=== PATIENT | female | born 1965 | race Caucasian/White ===

== ENCOUNTER 2017-01-18 16:17 | Emergency (ER) | payer MEDICAID ==
[~2017-01-18] VITALS: Ht 167.6 cm; Wt 71.7 kg
[~2017-01-18 16:17] MED LIST: CITA40TA22 PO; IBUP-1096 PO; XANAX PO
[2017-01-18] MEDS ORDERED: PROG100C6 PO (16:26)
[2017-01-18] MEDS ORDERED: [UNRECOGNIZED DRUG - REMARK] (16:26)
[2017-01-18] MEDS ORDERED: HYDROCODONE/APAP 5-325MG TABLET PO ONE (16:45)
[2017-01-18] MEDS ORDERED: KETOROLAC TROMETHAMINE 30 MG INJ IM ONE (16:45)
--- NOTE | 2017-01-18 16:55 | NUR ---
Patient discharged to home in stable conditon. Written and verbal after care instructions given. Patient verbalizes understanding of instructions.
[2017-01-18] MEDS ORDERED: KETOROLAC TROMETHAMINE 30 MG INJ ONE (16:56)
[2017-01-18] MEDS ORDERED: HYDROCODONE/APAP 5-325MG TABLET ONE (16:57)
== END 2017-01-18 17:01 | disposition home or self-care (01) ==
LOC: ER 16:22
DX: J45.909 Unspecified asthma, uncomplicated (principal); M26.603 Bilateral temporomandibular joint disorder, unspecified; F10.20 Alcohol dependence, uncomplicated; F41.9 Anxiety disorder, unspecified; F32.9 Major depressive disorder, single episode, unspecified
CPT/HCPCS: A4663; J1885

== ENCOUNTER 2017-01-25 12:21 | Emergency (ER) | payer MEDICAID ==
[~2017-01-25] VITALS: Ht 167.6 cm; Wt 71.7 kg
[~2017-01-25 12:21] MED LIST changes: -CITA40TA22 PO; +PROG100C6 PO; +[UNRECOGNIZED DRUG - REMARK]
--- NOTE | 2017-01-25 14:13 | NUR ---
PATIENT BEING SEEN BY ER PHYSICIAN FOR EVALUATION. PATIENT HAS BEEN WAITING INPATIENTLY IN ROOM. CONTINOUSLY COMES OUT OF ROOM TO ASK FOR THE DOCTOR.
[2017-01-25] MEDS ORDERED: ALBUTEROL SULFATE 1.25 MG/3 ML NEBU NEB ONE (14:15)
[2017-01-25] MEDS ORDERED: ALBUTEROL SULFATE 1.25 MG/3 ML NEBU ONE (14:30)
[2017-01-25] MEDS ORDERED: IBUPROFEN 600 MG TABLET PO ONE (14:30)
--- NOTE | 2017-01-25 14:33 | NUR ---
PATIENT HAS NOT COMPLETED BREATHING TREATMENT AND ALREADY WANTS TO BE DISCHARGED.
--- NOTE | 2017-01-25 14:34 | NUR ---
DISCHARGE PAPERWORK GIVEN WITH PRESCRIPTION. DISCHARGE INSTRUCTIONS UNDERSTOOD
== END 2017-01-25 14:36 | disposition home or self-care (01) ==
LOC: ER 12:23
DX: S90.32XA Contusion of left foot, initial encounter (principal); J45.909 Unspecified asthma, uncomplicated; F10.20 Alcohol dependence, uncomplicated; F41.9 Anxiety disorder, unspecified; F32.9 Major depressive disorder, single episode, unspecified; X58.XXXA Exposure to other specified factors, initial encounter; Y93.89 Activity, other specified; Y99.8 Other external cause status; Y92.89 Other specified places as the place of occurrence of the external cause
CPT/HCPCS: 94640; 99283; A4663

== ENCOUNTER 2017-01-26 11:02 | Emergency (ER) | payer MEDICAID ==
[~2017-01-26] VITALS: Ht 167.6 cm; Wt 61.2 kg
[2017-01-26] MEDS ORDERED: ALBUTEROL SULFATE 2.5 MG/3 ML NEBU NEB ONE (11:30)
--- NOTE | 2017-01-26 11:36 | NUR ---
PT IS IN ROOM #1B. DR ROWAN EVALUATED THE PT.
[2017-01-26] MEDS ORDERED: ALBUTEROL SULFATE 2.5 MG/3 ML NEBU ONE (11:46)
--- NOTE | 2017-01-26 12:48 | NUR ---
PT WAS D/C TO HOME. D/C INSTRUCTIONS GIVEN TO THE PT.
[2017-01-26 12:49] VITALS: BP 128/72
== END 2017-01-26 12:50 | disposition home or self-care (01) ==
LOC: ER 11:02
DX: J20.9 Acute bronchitis, unspecified (principal); S90.32XA Contusion of left foot, initial encounter; F32.9 Major depressive disorder, single episode, unspecified; F41.9 Anxiety disorder, unspecified; F10.20 Alcohol dependence, uncomplicated; X58.XXXA Exposure to other specified factors, initial encounter; Y93.9 Activity, unspecified; Y99.9 Unspecified external cause status; Y92.9 Unspecified place or not applicable
CPT/HCPCS: 71020; 73620; 94640; 99284; A4663

== ENCOUNTER 2017-02-18 20:36 | Emergency (ER) | payer MEDICAID ==
[~2017-02-18] VITALS: Ht 167.6 cm; Wt 71.7 kg
--- NOTE | 2017-02-18 22:00 | NUR ---
LEFT FOOT PAIN AND SWOLEN AFTER STANDING ON HER FEET FOR A LONG TIME AT WORK.PULSES PRESENT , DR IN AND SEEN PT.
[2017-02-18] MEDS ORDERED: TRAMADOL HCL 50 MG TABLET PO ONE (22:15)
[2017-02-18] MEDS ORDERED: TRAMADOL HCL 50 MG TABLET ONE (22:23)
--- NOTE | 2017-02-18 23:10 | NUR ---
FLOR WRAP TO LEFT FOOT APPLIED WELL POST OP SHOE FITTED IN, PT FEELS BETTER WITH SUPPORT TO HER LEFT FOOT, ACI GIVEN WELL PRESC EXPLAINED , DISCH AMBULATORY IN STABLE CONDITION.
[2017-02-18 23:14] VITALS: BP 108/69
== END 2017-02-18 23:16 | disposition home or self-care (01) ==
LOC: ER 20:37
DX: S93.602A Unspecified sprain of left foot, initial encounter (principal); F10.20 Alcohol dependence, uncomplicated; F41.9 Anxiety disorder, unspecified; F32.9 Major depressive disorder, single episode, unspecified; X58.XXXA Exposure to other specified factors, initial encounter; Y93.89 Activity, other specified; Y99.8 Other external cause status; Y92.89 Other specified places as the place of occurrence of the external cause
CPT/HCPCS: A4663

== ENCOUNTER 2017-03-04 21:18 | Emergency (ER) | payer MEDICAID ==
[~2017-03-04] VITALS: Ht 167.6 cm; Wt 72.6 kg
[2017-03-04] MEDS ORDERED: ONDANSETRON ODT 4 MG TAB.RAPDIS SL ONE (22:15)
[2017-03-04] MEDS ORDERED: SULFAMETH/TRIMETH 800/160 MG TABLET PO ONE (22:15)
[2017-03-04] MEDS ORDERED: PSEUDOEPHEDRINE HCL 30 MG TABLET PO ONE (22:15)
[2017-03-04] MEDS ORDERED: OXYCODONE/APAP 5-325 MG TABLET PO ONE (22:15)
[2017-03-04] MEDS ORDERED: ONDANSETRON ODT 4 MG TAB.RAPDIS ONE (22:27)
[2017-03-04] MEDS ORDERED: PSEUDOEPHEDRINE HCL 30 MG TABLET ONE (22:27)
[2017-03-04] MEDS ORDERED: SULFAMETH/TRIMETH 800/160 MG TABLET ONE (22:28)
[2017-03-04] MEDS ORDERED: OXYCODONE/APAP 5-325 MG TABLET ONE (22:28)
--- NOTE | 2017-03-04 22:28 | NUR ---
mse completed, pt rec'd meds, pt then d/c'd home, aci/rx x3 given. pt ambulated w/o diff/took all belongings.
[2017-03-04 22:30] VITALS: BP 133/99
== END 2017-03-04 22:31 | disposition home or self-care (01) ==
LOC: ER 21:21
DX: J32.9 Chronic sinusitis, unspecified (principal); F41.9 Anxiety disorder, unspecified; F32.9 Major depressive disorder, single episode, unspecified; F10.20 Alcohol dependence, uncomplicated; R51 Headache
CPT/HCPCS: A4663; Q0162

== ENCOUNTER 2017-04-06 09:10 | Emergency (ER) | payer MEDICAID ==
[~2017-04-06] VITALS: Ht 167.6 cm; Wt 71.7 kg
[2017-04-06] MEDS: ALBUTEROL SULFATE 2.5 MG/3 ML NEBU NEB ONE (09:25)
[2017-04-06] MEDS: IPRATROPIUM BROMIDE 0.5 MG/2.5 ML NEBU NEB ONE (09:25)
[2017-04-06] MEDS: predniSONE 10 MG TABLET PO ONE (09:36)
[2017-04-06] MEDS ORDERED: IPRATROPIUM BROMIDE 0.5 MG/2.5 ML NEBU ONE (09:41)
[2017-04-06] MEDS ORDERED: ALBUTEROL SULFATE 2.5 MG/3 ML NEBU ONE (09:41)
[2017-04-06] MEDS ORDERED: predniSONE 50 MG TABLET ONE (09:49)
[2017-04-06] MEDS ORDERED: predniSONE 10 MG TABLET ONE (09:50)
--- NOTE | 2017-04-06 10:02 | NUR ---
pt was evaluted by dr mueller. pt was medicated according er md orders. pt tolerated to medication and procedures without complications. pt was d/c to home. d/c instructions given to the pt.
[2017-04-06 10:04] VITALS: BP 132/87
== END 2017-04-06 10:05 | disposition home or self-care (01) ==
LOC: ER 09:10
DX: J45.909 Unspecified asthma, uncomplicated (principal); F32.9 Major depressive disorder, single episode, unspecified; F41.9 Anxiety disorder, unspecified
CPT/HCPCS: A4663; J3590; J7512

== ENCOUNTER 2017-04-08 16:48 | Emergency (ER) | payer MEDICAID ==
[~2017-04-08] VITALS: Ht 167.6 cm; Wt 71.7 kg
[2017-04-08] MEDS ORDERED: IPRATROPIUM BROMIDE 0.5 MG/2.5 ML NEBU NEB ONE (17:45)
[2017-04-08] MEDS ORDERED: ALBUTEROL SULFATE 2.5 MG/3 ML NEBU NEB ONE (17:45)
--- NOTE | 2017-04-08 17:48 | NUR ---
PT IS IN ROOM #2B. DR ALFREDO EVALUATED THE PT.
[2017-04-08] MEDS ORDERED: IPRATROPIUM BROMIDE 0.5 MG/2.5 ML NEBU ONE (18:06)
[2017-04-08] MEDS ORDERED: ALBUTEROL SULFATE 2.5 MG/ 0.5 ML NEBU ONE (18:06)
[2017-04-08] MEDS ORDERED: predniSONE 20 MG TABLET PO ONE (18:15)
[2017-04-08] MEDS ORDERED: predniSONE 20 MG TABLET ONE (18:34)
--- NOTE | 2017-04-08 19:12 | NUR ---
PT WAS D/C TO HOME. D/C INSTRUCTIONS GIVEN TO THE PT. NO SOB. NO S/S OF ACUTE DISTRESS.
[2017-04-08 19:13] VITALS: BP 132/78
== END 2017-04-08 19:15 | disposition home or self-care (01) ==
LOC: ER 16:50
DX: J45.909 Unspecified asthma, uncomplicated (principal); F32.9 Major depressive disorder, single episode, unspecified; F41.9 Anxiety disorder, unspecified
CPT/HCPCS: 94644; 99285; A4663; J3590; J7512

== ENCOUNTER 2017-05-18 20:04 | Emergency (ER) | payer MEDICAID ==
[~2017-05-18] VITALS: Ht 170.2 cm; Wt 72.6 kg
[2017-05-18] MEDS ORDERED: IBUPROFEN 800 MG TABLET PO ONE (21:00)
--- NOTE | 2017-05-18 21:07 | NUR ---
Patient discharged to home in stable conditon. Written and verbal after care instructions given. Patient verbalizes understanding of instructions.
[2017-05-18] MEDS ORDERED: IBUPROFEN 800 MG TABLET ONE (21:14)
== END 2017-05-18 21:08 | disposition home or self-care (01) ==
LOC: ER 20:08
DX: S89.91XA Unspecified injury of right lower leg, initial encounter (principal); F32.9 Major depressive disorder, single episode, unspecified; F41.9 Anxiety disorder, unspecified; X58.XXXA Exposure to other specified factors, initial encounter; Y93.89 Activity, other specified; Y99.8 Other external cause status; Y92.89 Other specified places as the place of occurrence of the external cause
CPT/HCPCS: A4663

== ENCOUNTER 2017-06-10 12:20 | Emergency (ER) | payer MEDICAID ==
[~2017-06-10] VITALS: Ht 167.6 cm; Wt 72.6 kg
[2017-06-10] MEDS ORDERED: PROGESTERON (12:46)
--- NOTE | 2017-06-10 14:03 | NUR ---
PATIENT WAS SEEN BY DR ALFREDO FOR C/O IRRITATION IN PERINEUM.
[2017-06-10 14:18] LABS: *BILIRUBIN,URIN NEGATIVE (NEGATIVE); *BLOOD, URINE NEGATIVE (NEGATIVE); *CLARITY,URINE CLEAR (CLEAR); *COLOR,URINE YELLOW (YELLOW); *KETONES,URINE NEGATIVE (NEGATIVE); *PROTEIN,URINE NEGATIVE (NEGATIVE); *UROBILINOGEN,URINE 0.2 E.U./dl (NORMAL); LEUKOCYTE ESTERASE ,URINE NEGATIVE (NEGATIVE); NITRITE, URINE NEGATIVE (NEGATIVE); UGLUCOSE NEGATIVE (NEGATIVE)
--- NOTE | 2017-06-10 14:18 | NUR ---
DC, RX AND FOLLOW UP INSTRUCTIONS GIVEN AND EXPLAINED TO PATIENT WHO STATES SHE UNDERSTANDS ALL INSTRUCTIONS.
[2017-06-10 14:21] LABS: *URINE HCG, QUAL NEGATIVE (NEGATIVE)
[2017-06-10 14:30] LABS: BACTERIA,URINE MODERATE /HPF (NONE SEEN); RBC,URINE 0-3 /HPF (0-3); SQUAMOUS EPITHELIAL CELL,UR FEW /HPF (NONE SEEN); WBC,URINE 0-3 /HPF (0-3)
== END 2017-06-10 14:20 | disposition home or self-care (01) ==
LOC: ER 12:20
DX: L30.9 Dermatitis, unspecified (principal); I10 Essential (primary) hypertension; J45.909 Unspecified asthma, uncomplicated
CPT/HCPCS: 81001; 84703; 87491; 99284; A4663

== ENCOUNTER 2017-06-21 16:33 | Emergency (ER) | payer MEDICAID ==
[~2017-06-21] VITALS: Ht 167.6 cm; Wt 72.6 kg
[~2017-06-21 16:33] MED LIST changes: -IBUP-1096 PO; -PROG100C6 PO; +PROGESTERON; -XANAX PO
[2017-06-21] MEDS ORDERED: ASPIRIN 325 MG TABLET PO ONE (17:00)
[2017-06-21] MEDS ORDERED: KETOROLAC TROMETHAMINE 15 MG INJ IV ONE (17:00)
[2017-06-21] MEDS ORDERED: ASPIRIN 325 MG TABLET ONE (17:20)
[2017-06-21] MEDS ORDERED: KETOROLAC TROMETHAMINE 15 MG INJ ONE ×2 (17:20)
[2017-06-21] MEDS ORDERED: ASPIRIN 81 MG TAB.CHEW ONE (17:20)
[2017-06-21] MEDS ORDERED: ONDANSETRON IV *ER 4 MG/2 ML VIAL ONE (17:20)
--- NOTE | 2017-06-21 17:20 | NUR ---
PATIENT WAS SEEN BY MD FOR C/O NAUSEA AND PAIN. IV PLACED, MEDS GIVEN. STATES PAIN DIMINISHED SOME. AWAITING TEST RESULTS.
[2017-06-21 17:42] LABS: BASOPHILS # (AUTO) 0.1 K/uL (0.0-8.0); BASOPHILS % (AUTO) 0.9 % (0.0-2.0); EOSINOPHILS # (AUTO) 0.6 K/uL (0.0-0.7); EOSINOPHILS % (AUTO) 6.1 % (0.0-7.0); HEMATOCRIT 44.8 % (37-47); HEMOGLOBIN 14.8 G/DL (12.0-16.0); LYMPHOCYTES # (AUTO) 2.6 K/UL (0.8-4.8); LYMPHOCYTES % (AUTO) 27.8 % (20.5-51.5); MEAN CORPUSCULAR HEMOGLOBIN 31.9 UUG (27.0-31.0); MEAN CORPUSCULAR HGB CONC 33 g/dL (32.0-37.0); MEAN CORPUSCULAR VOLUME 96.6 FL (81.0-99.0); MONOCYTES # (AUTO) 0.5 K/UL (0.1-1.30); MONOCYTES % (AUTO) 4.8 % (0.0-11.0); NEUTROPHILS # (AUTO) 5.6 K/UL (1.8-8.9); NEUTROPHILS % (AUTO) 60.4 % (38.5-71.5); PLATELET COUNT (AUTO) 225 K/UL (150-450); POTASSIUM 3.9 mmol/L (3.5-5.1); RED BLOOD CELL COUNT(AUTO) 4.63 MIL/UL (4.2-5.4); WHITE BLOOD COUNT (AUTO) 9.4 K/UL (4.0-11.2)
[2017-06-21] MEDS ORDERED: ONDANSETRON IV *ER 4 MG/2 ML VIAL IV ONE (17:45)
[2017-06-21 17:48] LABS: BILIRUBIN,DIRECT 0.1 mg/dL (0.0-0.2); BILIRUBIN,TOTAL 0.2 mg/dL (0.2-1.0); TOTAL PROTEIN, SERUM 6.9 g/dL (6.4-8.2)
[2017-06-21] MEDS ORDERED: ONDANSETRON 4 MG/2 ML VIAL ONE (17:59)
--- NOTE | 2017-06-21 18:13 | NUR ---
DC, RX AND FOLLOW UP INSTRUCTIONS GIVEN AND EXPLAINED TO PATIENT AND FAMILY WHO STATE THEY UNDERSTAND ALL INSTRUCTIONS.
[2017-06-21 18:15] VITALS: BP 120/65
[2017-06-22] MEDS ORDERED: NATURE THYROID (08:52)
[2017-06-22] MEDS ORDERED: ALBU8HFA4 INH (08:52)
== END 2017-06-21 18:17 | disposition home or self-care (01) ==
LOC: ER 16:34
DX: F41.9 Anxiety disorder, unspecified (principal); I10 Essential (primary) hypertension; J45.909 Unspecified asthma, uncomplicated; F32.9 Major depressive disorder, single episode, unspecified
CPT/HCPCS: 36415; 70030-TC; 83690; 84703; 85025; 85730; 93005; A4663; J1885; J2405

== ENCOUNTER 2017-06-22 08:33 | Emergency (ER) | payer MEDICAID ==
[~2017-06-22] VITALS: Ht 167.6 cm; Wt 72.6 kg
[2017-06-22] MEDS ORDERED: NATURE THYROID (08:52)
[2017-06-22] MEDS ORDERED: ALBU8HFA4 INH (08:52)
--- NOTE | 2017-06-22 08:58 | NUR ---
Dr Hutchison at the bedside for eval and exam.
[2017-06-22] MEDS ORDERED: IV NORMAL SALINE 1000 ML BAG IV ONE (09:15)
[2017-06-22] MEDS ORDERED: ONDANSETRON 4 MG/2 ML VIAL IV ONE (09:15)
[2017-06-22 09:27] LABS: *BILIRUBIN,URIN NEGATIVE (NEGATIVE); *BLOOD, URINE NEGATIVE (NEGATIVE); *CLARITY,URINE CLEAR (CLEAR); *COLOR,URINE YELLOW (YELLOW); *KETONES,URINE NEGATIVE (NEGATIVE); *PROTEIN,URINE NEGATIVE (NEGATIVE); *UROBILINOGEN,URINE 0.2 E.U./dl (NORMAL); LEUKOCYTE ESTERASE ,URINE NEGATIVE (NEGATIVE); NITRITE, URINE NEGATIVE (NEGATIVE); PH,URINE 8.5 (5.0-8.0); UGLUCOSE NEGATIVE (NEGATIVE)
[2017-06-22 09:32] LABS: BASOPHILS # (AUTO) 0.1 K/uL (0.0-8.0); BASOPHILS % (AUTO) 1.3 % (0.0-2.0); EOSINOPHILS # (AUTO) 0.6 K/uL (0.0-0.7); EOSINOPHILS % (AUTO) 6.6 % (0.0-7.0); HEMATOCRIT 47.6 % (37-47); HEMOGLOBIN 15.9 G/DL (12.0-16.0); LYMPHOCYTES # (AUTO) 3.1 K/UL (0.8-4.8); LYMPHOCYTES % (AUTO) 33.2 % (20.5-51.5); MEAN CORPUSCULAR HEMOGLOBIN 32.3 UUG (27.0-31.0); MEAN CORPUSCULAR HGB CONC 33 g/dL (32.0-37.0); MEAN CORPUSCULAR VOLUME 96.6 FL (81.0-99.0); MONOCYTES # (AUTO) 0.7 K/UL (0.1-1.30); MONOCYTES % (AUTO) 7.7 % (0.0-11.0); NEUTROPHILS # (AUTO) 4.8 K/UL (1.8-8.9); NEUTROPHILS % (AUTO) 51.2 % (38.5-71.5); PLATELET COUNT (AUTO) 248 K/UL (150-450); RED BLOOD CELL COUNT(AUTO) 4.93 MIL/UL (4.2-5.4); WHITE BLOOD COUNT (AUTO) 9.3 K/UL (4.0-11.2)
[2017-06-22 09:39] LABS: CREATININE 1.1 mg/dL (0.6-1.3); POTASSIUM 4.1 mmol/L (3.5-5.1)
[2017-06-22 09:40] LABS: BACTERIA,URINE FEW /HPF (NONE SEEN); RBC,URINE 0-3 /HPF (0-3); SQUAMOUS EPITHELIAL CELL,UR FEW /HPF (NONE SEEN); URINE AMORPHOUS PHOSPHATES MODERATE /HPF; WBC,URINE 0-3 /HPF (0-3)
[2017-06-22 09:45] LABS: BILIRUBIN,DIRECT 0.1 mg/dL (0.0-0.2); BILIRUBIN,TOTAL 0.3 mg/dL (0.2-1.0); TOTAL PROTEIN, SERUM 7.1 g/dL (6.4-8.2)
[2017-06-22] MEDS ORDERED: KETOROLAC TROMETHAMINE 30 MG INJ IVP ONE (10:00)
[2017-06-22] MEDS ORDERED: METOCLOPRAMIDE HCL 10 MG/2 ML VIAL IV ONE (10:00)
[2017-06-22] MEDS ORDERED: METOCLOPRAMIDE HCL 10 MG/2 ML VIAL ONE (10:07)
[2017-06-22] MEDS ORDERED: KETOROLAC TROMETHAMINE 30 MG INJ ONE (10:07)
--- NOTE | 2017-06-22 10:08 | NUR ---
Patient discharged to home in stable conditon. Written and verbal after care instructions given. Patient verbalizes understanding of instructions.
--- NOTE | 2017-06-22 10:08 | NUR ---
IV removed. Catheter intact and site benign. Pressure and 4x4 gauze applied to site. No bleeding noted.
[2017-06-22 10:09] VITALS: BP 121/76
== END 2017-06-22 10:10 | disposition home or self-care (01) ==
LOC: ER 08:33
DX: K80.50 Calculus of bile duct without cholangitis or cholecystitis without obstruction (principal); I10 Essential (primary) hypertension; J45.909 Unspecified asthma, uncomplicated
CPT/HCPCS: 36415; 83690; 85025; A4663; J1885; J2765; J7030

== ENCOUNTER 2017-06-27 23:26 | Emergency (ER) | payer MEDICAID ==
[~2017-06-27] VITALS: Ht 167.6 cm; Wt 72.6 kg
[~2017-06-27 23:26] MED LIST changes: +ALBU8HFA4 INH; +NATURE THYROID; -[UNRECOGNIZED DRUG - REMARK]
--- NOTE | 2017-06-27 23:30 | NUR ---
Brought ambulatory to Room 2B for c/o abdominal pain. Seen here 2 days ago for same and was Dx with Gallstones.
--- NOTE | 2017-06-28 01:00 | NUR ---
Seen and evaluated by Dr. Hurley.
[2017-06-28] MEDS ORDERED: IBUPROFEN 800 MG TABLET PO ONE (01:30)
[2017-06-28] MEDS ORDERED: IBUPROFEN 800 MG TABLET ONE (01:37)
[2017-06-28 01:47] LABS: BASOPHILS # (AUTO) 0.1 K/uL (0.0-8.0); EOSINOPHILS # (AUTO) 0.4 K/uL (0.0-0.7); EOSINOPHILS % (AUTO) 3.9 % (0.0-7.0); HEMOGLOBIN 14.1 G/DL (12.0-16.0); LYMPHOCYTES # (AUTO) 2.2 K/UL (0.8-4.8); MEAN CORPUSCULAR HGB CONC 34 g/dL (32.0-37.0); MEAN CORPUSCULAR VOLUME 95.1 FL (81.0-99.0); MONOCYTES # (AUTO) 0.6 K/UL (0.1-1.30); MONOCYTES % (AUTO) 5.4 % (0.0-11.0); NEUTROPHILS # (AUTO) 7.9 K/UL (1.8-8.9); NEUTROPHILS % (AUTO) 69.7 % (38.5-71.5); PLATELET COUNT (AUTO) 223 K/UL (150-450); RED BLOOD CELL COUNT(AUTO) 4.42 MIL/UL (4.2-5.4); WHITE BLOOD COUNT (AUTO) 11.2 K/UL (4.0-11.2)
[2017-06-28 01:55] LABS: *BILIRUBIN,URIN NEGATIVE (NEGATIVE); *BLOOD, URINE NEGATIVE (NEGATIVE); *CLARITY,URINE CLEAR (CLEAR); *COLOR,URINE YELLOW (YELLOW); *KETONES,URINE NEGATIVE (NEGATIVE); *PROTEIN,URINE NEGATIVE (NEGATIVE); *UROBILINOGEN,URINE 0.2 E.U./dl (NORMAL); LEUKOCYTE ESTERASE ,URINE NEGATIVE (NEGATIVE); NITRITE, URINE NEGATIVE (NEGATIVE); PH,URINE 5.5 (5.0-8.0); UGLUCOSE NEGATIVE (NEGATIVE)
[2017-06-28 01:55] LABS: CREATININE 1.1 mg/dL (0.6-1.3); POTASSIUM 3.7 mmol/L (3.5-5.1)
[2017-06-28 02:01] LABS: BILIRUBIN,DIRECT 0.1 mg/dL (0.0-0.2); BILIRUBIN,TOTAL 0.3 mg/dL (0.2-1.0)
[2017-06-28 02:04] LABS: BACTERIA,URINE NONE SEEN /HPF (NONE SEEN); RBC,URINE 0-3 /HPF (0-3); SQUAMOUS EPITHELIAL CELL,UR FEW /HPF (NONE SEEN); WBC,URINE 0-3 /HPF (0-3)
[2017-06-28] MEDS ORDERED: HYDROCODONE/APAP 5-325MG TABLET PO ONE (02:15)
[2017-06-28] MEDS ORDERED: HYDROCODONE/APAP 5-325MG TABLET ONE (02:33)
== END 2017-06-28 03:23 | disposition home or self-care (01) ==
LOC: ER 23:28
DX: N95.0 Postmenopausal bleeding (principal); I10 Essential (primary) hypertension; J45.909 Unspecified asthma, uncomplicated
CPT/HCPCS: 36415; 70030-TC; 83690; 84703; 85025; 93005; A4663

== ENCOUNTER 2017-07-29 11:13 | Emergency (ER) | payer MEDICAID ==
[~2017-07-29] VITALS: Ht 167.6 cm; Wt 72.6 kg
[2017-07-29] MEDS ORDERED: FLUO20CA36 PO (11:30)
--- NOTE | 2017-07-29 12:13 | NUR ---
PT WAS EVALUATED BY DR PULIDO. PT WAS MEDICATED ACCORDING TO ER MD ORDERS. PT TOLERATED TO MEDICATION WITHOUT COMPLICATIONS. PT WAS D/C TO HOME. D/C INSTRUCTIONS GIVEN TO THE PT.
[2017-07-29 12:15] VITALS: BP 136/89
== END 2017-07-29 12:18 | disposition home or self-care (01) ==
LOC: ER 11:13
DX: J45.909 Unspecified asthma, uncomplicated (principal); M54.9 Dorsalgia, unspecified; I10 Essential (primary) hypertension
CPT/HCPCS: A4663; J3590; J7512

== ENCOUNTER 2017-08-21 14:12 | Emergency (ER) | payer MEDICAID ==
[~2017-08-21] VITALS: Ht 165.1 cm; Wt 72.6 kg
[~2017-08-21 14:12] MED LIST changes: +FLUO20CA36 PO
[2017-08-21] MEDS ORDERED: SERT50TA PO (14:19)
[2017-08-21] MEDS ORDERED: KETOROLAC TROMETHAMINE 30 MG INJ IM ONE (14:45)
[2017-08-21] MEDS ORDERED: KETOROLAC TROMETHAMINE 30 MG INJ ONE (15:00)
--- NOTE | 2017-08-21 15:00 | NUR ---
Patient discharged to home in stable conditon. Written and verbal after care instructions given. Patient verbalizes understanding of instructions.pt walks in steady gait. pain down to tolerable level.
== END 2017-08-21 15:00 | disposition home or self-care (01) ==
LOC: ER 14:12
DX: M54.5 Low back pain (principal); I10 Essential (primary) hypertension; J45.909 Unspecified asthma, uncomplicated
CPT/HCPCS: 96372; 99283; A4663; J1885

== ENCOUNTER 2017-09-05 08:49 | Emergency (ER) | payer MEDICAID ==
[~2017-09-05] VITALS: Ht 167.6 cm; Wt 72.6 kg
[~2017-09-05 08:49] MED LIST changes: -FLUO20CA36 PO; -NATURE THYROID; +SERT50TA PO
--- NOTE | 2017-09-05 09:02 | NUR ---
DR CASEY AT BEDSIDE FOR EVALUATION.
--- NOTE | 2017-09-05 09:11 | NUR ---
After the neb treatment, patient is discharged to home in stable conditon. Written and verbal after care instructions given. Patient verbalizes understanding of instructions. "Safe Pain Medication Prescribing in ER department" information sheet provided to patient. Patient has no questions at this time.
[2017-09-05] MEDS ORDERED: ALBUTEROL SULFATE 2.5 MG/3 ML NEBU NEB ONE (09:15)
[2017-09-05] MEDS ORDERED: ALBUTEROL SULFATE 2.5 MG/3 ML NEBU ONE (09:23)
== END 2017-09-05 09:21 | disposition home or self-care (01) ==
LOC: ER 08:49
DX: J20.9 Acute bronchitis, unspecified (principal); M54.9 Dorsalgia, unspecified; I10 Essential (primary) hypertension; J45.909 Unspecified asthma, uncomplicated
CPT/HCPCS: A4663

== ENCOUNTER 2017-10-24 14:14 | Emergency (ER) | payer MEDICAID ==
[~2017-10-24] VITALS: Ht 167.6 cm; Wt 72.6 kg
[2017-10-24] MEDS ORDERED: ALBUTEROL SULFATE 2.5 MG/3 ML NEBU NEB ONE (15:00)
[2017-10-24] MEDS ORDERED: IPRATROPIUM BROMIDE 0.5 MG/2.5 ML NEBU NEB ONE (15:00)
[2017-10-24] MEDS ORDERED: IPRATROPIUM BROMIDE 0.5 MG/2.5 ML NEBU ONE (15:15)
[2017-10-24] MEDS ORDERED: ALBUTEROL SULFATE 2.5 MG/ 0.5 ML NEBU ONE (15:16)
--- NOTE | 2017-10-24 15:27 | NUR ---
Patient discharged to home in stable conditon. Written and verbal after care instructions given. Patient verbalizes understanding of instructions.PT WALKS IN STEADY GAIT, SAYS FEELS BETTER, PT EUBREATHING
== END 2017-10-24 15:25 | disposition home or self-care (01) ==
LOC: ER 14:14
DX: J20.9 Acute bronchitis, unspecified (principal); I10 Essential (primary) hypertension
CPT/HCPCS: 94640; 99283; A4663; J3590

== ENCOUNTER 2017-11-29 17:31 | Emergency (ER) | payer MEDICAID ==
[~2017-11-29] VITALS: Ht 167.6 cm; Wt 72.6 kg
[2017-11-29] MEDS ORDERED: ALBUTEROL SULFATE 2.5 MG/3 ML NEBU NEB ONE (18:30)
[2017-11-29] MEDS ORDERED: predniSONE 10 MG TABLET PO ONE (18:30)
[2017-11-29] MEDS ORDERED: IPRATROPIUM BROMIDE 0.5 MG/2.5 ML NEBU NEB ONE (18:30)
[2017-11-29] MEDS ORDERED: IPRATROPIUM BROMIDE 0.5 MG/2.5 ML NEBU ONE (18:49)
[2017-11-29] MEDS ORDERED: ALBUTEROL SULFATE 2.5 MG/3 ML NEBU ONE (18:49)
[2017-11-29] MEDS ORDERED: predniSONE 50 MG TABLET ONE (18:50)
[2017-11-29] MEDS ORDERED: predniSONE 10 MG TABLET ONE (18:52)
--- NOTE | 2017-11-29 18:54 | NUR ---
PT WAS EVALUATED BY DR IRELAND. PT WAS MEDICATED ACCORDING TO ER MD ORDERS. PT TOLERATED TO MEDICATION WITHOUT COMPLICATIONS. PT WAS D/C TO HOME. D/C INSTRUCTIONS GIVEN TO THE PT.
[2017-11-29 18:56] VITALS: BP 129/71
== END 2017-11-29 18:57 | disposition home or self-care (01) ==
LOC: ER 17:31
DX: J40 Bronchitis, not specified as acute or chronic (principal); M79.672 Pain in left foot; I10 Essential (primary) hypertension
CPT/HCPCS: 94640; 99283; A4663; J3590; J7512 ×2

== ENCOUNTER 2018-01-20 10:07 | Emergency (ER) | payer MEDICAID ==
[~2018-01-20] VITALS: Ht 167.6 cm; Wt 72.6 kg
[2018-01-20] MEDS ORDERED: IPRATROPIUM BROMIDE 0.5 MG/2.5 ML NEBU NEB ONE (10:30)
[2018-01-20] MEDS ORDERED: predniSONE 20 MG TABLET PO ONE (10:30)
[2018-01-20] MEDS ORDERED: ALBUTEROL SULFATE 2.5 MG/3 ML NEBU NEB ONE (10:30)
[2018-01-20] MEDS ORDERED: KETOROLAC TROMETHAMINE 60 MG INJ IM ONE ×2 (10:30→10:31)
--- NOTE | 2018-01-20 10:30 | NUR ---
PATIENT WAS SEEN BY DR PULIDO.
[2018-01-20] MEDS ORDERED: predniSONE 10 MG TABLET ONE (10:31)
[2018-01-20] MEDS ORDERED: predniSONE 50 MG TABLET ONE (10:31)
[2018-01-20] MEDS ORDERED: IPRATROPIUM BROMIDE 0.5 MG/2.5 ML NEBU ONE (10:32)
[2018-01-20] MEDS ORDERED: ALBUTEROL SULFATE 2.5 MG/3 ML NEBU ONE (10:32)
--- NOTE | 2018-01-20 11:13 | NUR ---
PATIENT STATE SHE FEELS BETTER. DC, RX (INCLUDING NORCO AND ATIVAN PRECAUTIONS) AND FOLLOW UP INSTRUCTIONS GIVEN AND EXPLAINED TO PATIENT WHO STATES SHE UNDERSTANDS ALL INSTRUCTIONS.
== END 2018-01-20 11:16 | disposition home or self-care (01) ==
LOC: ER 10:09
DX: J45.901 Unspecified asthma with (acute) exacerbation (principal); M54.9 Dorsalgia, unspecified; F41.9 Anxiety disorder, unspecified; F32.9 Major depressive disorder, single episode, unspecified; I10 Essential (primary) hypertension; Z79.899 Other long term (current) drug therapy
CPT/HCPCS: A4663; J1885; J3590; J7512

== ENCOUNTER 2018-09-23 17:19 | Emergency (ER) | payer MEDICAID, OTHER ==
[~2018-09-23] VITALS: Ht 167.6 cm; Wt 68.0 kg
[2018-09-23] MEDS ORDERED: IPRATROPIUM BROMIDE 0.5 MG/2.5 ML NEBU NEB ONE (17:45)
[2018-09-23] MEDS ORDERED: ALBUTEROL SULFATE 2.5 MG/3 ML NEBU NEB ONE (17:45)
[2018-09-23] MEDS ORDERED: predniSONE 10 MG TABLET PO ONE (17:45)
[2018-09-23] MEDS ORDERED: predniSONE 10 MG TABLET ONE (17:48)
[2018-09-23] MEDS ORDERED: predniSONE 50 MG TABLET ONE (17:48)
[2018-09-23] MEDS ORDERED: IPRATROPIUM BROMIDE 0.5 MG/2.5 ML NEBU ONE (17:49)
[2018-09-23] MEDS ORDERED: ALBUTEROL SULFATE 2.5 MG/3 ML NEBU ONE (17:49)
--- NOTE | 2018-09-23 18:10 | NUR ---
Pt states feeling better after breathing tx.
--- NOTE | 2018-09-23 18:17 | NUR ---
Patient discharged to home in stable conditon. Written and verbal after care instructions given. Patient verbalizes understanding of instructions.
[2018-09-23 18:18] VITALS: BP 113/76
== END 2018-09-23 18:19 | disposition home or self-care (01) ==
LOC: ER 17:20
DX: J45.909 Unspecified asthma, uncomplicated (principal); I10 Essential (primary) hypertension
CPT/HCPCS: 94640; 99283; J7512 ×2; A4663; J3590

== ENCOUNTER 2018-11-29 09:58 | Emergency (ER) | payer MEDICAID, OTHER ==
[~2018-11-29] VITALS: Ht 162.6 cm; Wt 63.5 kg
[2018-11-29] MEDS ORDERED: KETOROLAC TROMETHAMINE 15 MG INJ IM ONE (10:15)
[2018-11-29] MEDS ORDERED: ALBUTEROL SULFATE 2.5 MG/3 ML NEBU NEB ONE (10:15)
[2018-11-29] MEDS ORDERED: IPRATROPIUM BROMIDE 0.5 MG/2.5 ML NEBU NEB ONE (10:15)
[2018-11-29] MEDS ORDERED: KETOROLAC TROMETHAMINE 15 MG INJ ONE (10:19)
[2018-11-29] MEDS ORDERED: IPRATROPIUM BROMIDE 0.5 MG/2.5 ML NEBU ONE (10:22)
[2018-11-29] MEDS ORDERED: ALBUTEROL SULFATE 2.5 MG/3 ML NEBU ONE (10:22)
--- NOTE | 2018-11-29 10:30 | NUR ---
PATIENT WAS SEEN BY . RT AT BEDSIDE FOR TX. TORADOL GIVEN ORDERED.
--- NOTE | 2018-11-29 10:53 | NUR ---
PATIENT STATES SHE FEELS MUCH BETTER. DC, RX AND FOLLOW UP INSTRUCTIONS GIVEN AND EXPLAINED TO PATIENT WHO STATES SHE UNDERSTANDS ALL INSTRUCTIONS.
== END 2018-11-29 10:56 | disposition home or self-care (01) ==
LOC: ER 09:58
DX: J45.909 Unspecified asthma, uncomplicated (principal); B35.4 Tinea corporis; B00.1 Herpesviral vesicular dermatitis; I10 Essential (primary) hypertension; Z79.899 Other long term (current) drug therapy
CPT/HCPCS: 94640; 96372; 99283; J1885; A4663; J3590

== ENCOUNTER 2018-11-30 09:02 | Emergency (ER) | payer MEDICAID, OTHER ==
[~2018-11-30] VITALS: Ht 167.6 cm; Wt 72.6 kg
--- NOTE | 2018-11-30 09:10 | NUR ---
PT A/OX4, PRESENTS TO THE ER C/O R FLANK PAIN. PT STATES THE PAIN STARTED LAST NIGHT, NON-PROVOKING, SHARP IN QUALITY, DOES NOT RADIATE, 05/08, CONSTANT. UPON ASSESSMENT, PT DENIES CVA TENDERNESS. VSS. PT DENIES C/P, SOB, N/V/D, DIZZINESS, HEADACHE.
[2018-11-30 09:18] LABS: *BILIRUBIN,URIN NEGATIVE (NEGATIVE); *BLOOD, URINE Trace-intact (NEGATIVE); *CLARITY,URINE CLEAR (CLEAR); *COLOR,URINE YELLOW (YELLOW); *KETONES,URINE NEGATIVE (NEGATIVE); *UROBILINOGEN,URINE 0.2 E.U./dl (NORMAL); LEUKOCYTE ESTERASE ,URINE NEGATIVE (NEGATIVE); NITRITE, URINE NEGATIVE (NEGATIVE); PH,URINE 8.5 (5.0-8.0); UGLUCOSE NEGATIVE (NEGATIVE)
[2018-11-30 09:22] LABS: BACTERIA,URINE FEW /HPF (NONE SEEN); RBC,URINE 0-3 /HPF (0-3); SQUAMOUS EPITHELIAL CELL,UR FEW /HPF (NONE SEEN); WBC,URINE 0-3 /HPF (0-3)
--- NOTE | 2018-11-30 09:22 | NUR ---
DEVEN LAMBERT AT BEDSIDE FOR MSE.
[2018-11-30] MEDS ORDERED: KETOROLAC TROMETHAMINE 30 MG INJ ONE (09:28)
[2018-11-30] MEDS ORDERED: KETOROLAC TROMETHAMINE 30 MG INJ IM ONE (09:30)
--- NOTE | 2018-11-30 09:36 | NUR ---
DBA AT BEDSIDE.
[2018-11-30 09:45] LABS: BASOPHILS # (AUTO) 0.1 K/uL (0.0-8.0); EOSINOPHILS # (AUTO) 0.3 K/uL (0.0-0.7); EOSINOPHILS % (AUTO) 6.2 % (0.0-7.0); HEMATOCRIT 41.5 % (31.2-41.9); HEMOGLOBIN 14.2 g/dL (10.9-14.3); LYMPHOCYTES # (AUTO) 1.3 K/uL (20.0-40.0); LYMPHOCYTES % (AUTO) 24.8 % (20.5-51.5); MEAN CORPUSCULAR HEMOGLOBIN 32.6 uug (24.7-32.8); MEAN CORPUSCULAR HGB CONC 34 g/dL (32.3-35.6); MEAN CORPUSCULAR VOLUME 95.2 fL (75.5-95.3); MONOCYTES # (AUTO) 0.4 K/uL (2.0-10.0); MONOCYTES % (AUTO) 6.6 % (0.0-11.0); NEUTROPHILS # (AUTO) 3.3 K/uL (1.8-8.9); NEUTROPHILS % (AUTO) 61.4 % (38.5-71.5); PLATELET COUNT (AUTO) 230 K/uL (179-408); RED BLOOD CELL COUNT(AUTO) 4.36 MIL/uL (3.63-4.92); WHITE BLOOD COUNT (AUTO) 5.3 K/uL (3.8-11.8)
[2018-11-30 09:55] LABS: CREATININE 1.1 mg/dL (0.6-1.3); POTASSIUM 4.1 mmol/L (3.5-5.1)
[2018-11-30 10:00] LABS: BILIRUBIN,TOTAL 0.2 mg/dL (0.2-1.0); TOTAL PROTEIN, SERUM 6.7 g/dL (6.4-8.2)
--- NOTE | 2018-11-30 10:13 | NUR ---
Patient discharged to home in stable conditon. Written and verbal after care instructions given. Patient verbalizes understanding of instructions. PT D/C W/ PRESCRIPTIONS. ALL BELONGINGS W/ PT. PT SELF-AMBULATED W/O DIFFICULTY.
[2018-11-30 10:14] VITALS: BP 114/80
== END 2018-11-30 10:15 | disposition home or self-care (01) ==
LOC: ER 09:02
DX: R10.9 Unspecified abdominal pain (principal); I10 Essential (primary) hypertension; J45.909 Unspecified asthma, uncomplicated; Z79.899 Other long term (current) drug therapy
CPT/HCPCS: 36415; 80053; 81001; 85025; 96372; 99283; J1885; A4663

== ENCOUNTER 2018-12-06 11:34 | Emergency (ER) | payer MEDICAID, OTHER ==
[~2018-12-06] VITALS: Ht 167.6 cm; Wt 74.4 kg
[2018-12-06] MEDS ORDERED: KETOROLAC TROMETHAMINE 30 MG INJ ONE (12:29)
[2018-12-06] MEDS ORDERED: KETOROLAC TROMETHAMINE 30 MG INJ IM ONE (12:30)
[2018-12-06] MEDS ORDERED: ALBUTEROL SULFATE 2.5 MG/3 ML NEBU NEB ONE (12:30)
[2018-12-06] MEDS ORDERED: ALBUTEROL SULFATE 2.5 MG/3 ML NEBU ONE (12:32)
[2018-12-06 13:52] LABS: *BILIRUBIN,URIN NEGATIVE (NEGATIVE); *BLOOD, URINE Trace-lysed (NEGATIVE); *CLARITY,URINE CLEAR (CLEAR); *COLOR,URINE YELLOW (YELLOW); *KETONES,URINE NEGATIVE (NEGATIVE); *UROBILINOGEN,URINE 0.2 E.U./dl (NORMAL); LEUKOCYTE ESTERASE ,URINE NEGATIVE (NEGATIVE); NITRITE, URINE NEGATIVE (NEGATIVE); UGLUCOSE NEGATIVE (NEGATIVE)
[2018-12-06 13:55] LABS: BACTERIA,URINE FEW /HPF (NONE SEEN); RBC,URINE 0-3 /HPF (0-3); SQUAMOUS EPITHELIAL CELL,UR FEW /HPF (NONE SEEN); WBC,URINE 0-3 /HPF (0-3)
--- NOTE | 2018-12-06 14:06 | NUR ---
Patient discharged to home in stable conditon. Written and verbal after care instructions given. Patient verbalizes understanding of instructions.pt walks in steady gait. pt breathing normally, no sign of distress.
[2018-12-06 14:10] VITALS: BP 121/71
== END 2018-12-06 14:13 | disposition home or self-care (01) ==
LOC: ER 11:34
DX: B34.9 Viral infection, unspecified (principal); R53.1 Weakness; I10 Essential (primary) hypertension; J45.909 Unspecified asthma, uncomplicated; Z79.899 Other long term (current) drug therapy
CPT/HCPCS: 71045; 81001; 87400; 94640; 96372; 99284; J1885; A4663

== ENCOUNTER 2019-01-28 11:39 | Emergency (ER) | payer MEDICAID, OTHER ==
[~2019-01-28] VITALS: Ht 170.2 cm; Wt 73.9 kg
[2019-01-28] MEDS ORDERED: ACETAMINOPHEN ES 500 MG TABLET ONE (12:44)
[2019-01-28] MEDS ORDERED: ACETAMINOPHEN ES 500 MG TABLET PO ONE (12:45)
[2019-01-28] MEDS ORDERED: IBUPROFEN 600 MG TABLET ONE (12:45)
[2019-01-28] MEDS ORDERED: IBUPROFEN 600 MG TABLET PO ONE (12:45)
[2019-01-28] MEDS ORDERED: ALBUTEROL SULFATE 2.5 MG/3 ML NEBU ONE (13:25)
[2019-01-28] MEDS ORDERED: ALBUTEROL SULFATE 2.5 MG/3 ML NEBU NEB ONE (13:30)
--- NOTE | 2019-01-28 14:02 | NUR ---
Patient discharged to home in stable conditon. Written and verbal after care instructions given. Patient verbalizes understanding of instructions.
== END 2019-01-28 14:03 | disposition home or self-care (01) ==
LOC: ER 11:39
DX: J20.9 Acute bronchitis, unspecified (principal); I10 Essential (primary) hypertension; J45.909 Unspecified asthma, uncomplicated; Z79.899 Other long term (current) drug therapy
CPT/HCPCS: 36415; 86403; 87070; A4663; A9150

== ENCOUNTER 2019-02-05 11:38 | Emergency (ER) | payer OTHER ==
[~2019-02-05] VITALS: Ht 167.6 cm; Wt 73.0 kg
[2019-02-05] MEDS ORDERED: IPRATROPIUM BROMIDE 0.5 MG/2.5 ML NEBU ONE (12:01)
[2019-02-05] MEDS ORDERED: ALBUTEROL SULFATE 2.5 MG/ 0.5 ML NEBU ONE (12:01)
[2019-02-05] MEDS: IPRATROPIUM BROMIDE 0.5 MG/2.5 ML NEBU NEB ONE (12:04)
[2019-02-05] MEDS: ALBUTEROL SULFATE 2.5 MG/3 ML NEBU NEB ONE (12:04)
--- NOTE | 2019-02-05 12:57 | NUR ---
Patient discharged to home in stable conditon. Written and verbal after care instructions given. Patient verbalizes understanding of instructions.pt walks in steady gait. no sign of distress.
== END 2019-02-05 13:02 | disposition home or self-care (01) ==
LOC: ER 11:38
DX: J98.01 Acute bronchospasm (principal); N63.0 Unspecified lump in unspecified breast; M25.531 Pain in right wrist; M25.532 Pain in left wrist; I10 Essential (primary) hypertension; Z79.899 Other long term (current) drug therapy
CPT/HCPCS: 73100; A4663; J3590

== ENCOUNTER 2019-04-04 11:15 | Emergency (ER) | payer MEDICAID, OTHER ==
[~2019-04-04] VITALS: Ht 167.6 cm; Wt 72.6 kg
[2019-04-04] MEDS ORDERED: ESCI20TA PO (11:22)
[2019-04-04] MEDS ORDERED: AMPH30CA3 PO (11:23)
[2019-04-04] MEDS ORDERED: KETOROLAC TROMETHAMINE 30 MG INJ IM ONE (12:00)
[2019-04-04] MEDS ORDERED: KETOROLAC TROMETHAMINE 30 MG INJ ONE (12:08)
[2019-04-04] MEDS ORDERED: ALBUTEROL SULFATE 2.5 MG/3 ML NEBU NEB ONE (12:30)
[2019-04-04] MEDS ORDERED: DEXAMETHASONE SOD PHOSPHATE 4 MG INJ IM ONE (12:30)
[2019-04-04] MEDS ORDERED: ALBUTEROL SULFATE 2.5 MG/3 ML NEBU ONE (12:32)
[2019-04-04] MEDS ORDERED: DEXAMETHASONE SOD PHOSPHATE 4 MG INJ ONE (12:35)
--- NOTE | 2019-04-04 13:03 | NUR ---
Patient discharged to home in stable conditon. Written and verbal after care instructions given. Patient verbalizes understanding of instructions.PT SAYS FEELS BETTER. PT WALKS IN STEADY GAIT.
== END 2019-04-04 13:04 | disposition home or self-care (01) ==
LOC: ER 11:15
DX: M54.12 Radiculopathy, cervical region (principal); N93.9 Abnormal uterine and vaginal bleeding, unspecified; B00.1 Herpesviral vesicular dermatitis; J45.909 Unspecified asthma, uncomplicated; I10 Essential (primary) hypertension; Z79.899 Other long term (current) drug therapy
CPT/HCPCS: 72125; 94640; 96372 ×2; 99284; J1100; J1885; A4663

== ENCOUNTER 2019-05-18 19:46 | Emergency (ER) | payer MEDICAID ==
[~2019-05-18] VITALS: Ht 167.6 cm; Wt 69.4 kg
[~2019-05-18 19:46] MED LIST changes: +AMPH30CA3 PO; +ESCI20TA PO; -SERT50TA PO
--- NOTE | 2019-05-18 20:00 | NUR ---
ERMD at bedside
[2019-05-18] MEDS ORDERED: ACYCLOVIR 200 MG CAPSULE ONE (20:07)
--- NOTE | 2019-05-18 20:12 | NUR ---
Patient discharged to home in stable conditon. Written and verbal after care instructions given. Patient verbalizes understanding of instructions.
[2019-05-18] MEDS ORDERED: ACYCLOVIR 400 MG TABLET PO ONE (20:15)
== END 2019-05-18 20:13 | disposition home or self-care (01) ==
LOC: ER 19:46
DX: B00.1 Herpesviral vesicular dermatitis (principal); I10 Essential (primary) hypertension; F32.9 Major depressive disorder, single episode, unspecified; F41.9 Anxiety disorder, unspecified; J45.909 Unspecified asthma, uncomplicated; Z79.899 Other long term (current) drug therapy
CPT/HCPCS: A4663

== ENCOUNTER 2019-08-12 11:08 | Emergency (ER) | payer MEDICAID ==
[~2019-08-12] VITALS: Ht 167.6 cm; Wt 69.9 kg
[2019-08-12] MEDS ORDERED: IPRATROPIUM BROMIDE 0.5 MG/2.5 ML NEBU NEB ONE (11:30)
[2019-08-12] MEDS ORDERED: ALBUTEROL SULFATE 2.5 MG/3 ML NEBU NEB ONE (11:30)
[2019-08-12] MEDS ORDERED: predniSONE 10 MG TABLET PO ONE (11:30)
[2019-08-12] MEDS ORDERED: ALBUTEROL SULFATE 2.5 MG/3 ML NEBU ONE (11:33)
[2019-08-12] MEDS ORDERED: IPRATROPIUM BROMIDE 0.5 MG/2.5 ML NEBU ONE (11:33)
--- NOTE | 2019-08-12 11:43 | NUR ---
PT IS IN ROOM #2A. DR AGUILAR EVALUATED THE PT.
[2019-08-12] MEDS ORDERED: predniSONE 20 MG TABLET ONE (11:45)
[2019-08-12 12:31] VITALS: BP 132/81
--- NOTE | 2019-08-12 12:31 | NUR ---
PT WAS D/C'd TO HOME. D/C INSTRUCTIONS GIVEN TO THE PT.
== END 2019-08-12 12:32 | disposition home or self-care (01) ==
LOC: ER 11:08
DX: J45.909 Unspecified asthma, uncomplicated (principal); I10 Essential (primary) hypertension; F32.9 Major depressive disorder, single episode, unspecified; D41.9 Neoplasm of uncertain behavior of unspecified urinary organ; Z79.899 Other long term (current) drug therapy
CPT/HCPCS: 94640; 99283; J7512; A4663; J3590

== ENCOUNTER 2019-08-21 20:35 | Emergency (ER) | payer MEDICAID ==
[~2019-08-21] VITALS: Ht 167.6 cm; Wt 70.3 kg
[2019-08-21] MEDS ORDERED: predniSONE 50 MG TABLET ONE (21:27)
[2019-08-21] MEDS ORDERED: predniSONE 10 MG TABLET ONE (21:27)
[2019-08-21] MEDS ORDERED: ALBUTEROL SULFATE 2.5 MG/3 ML NEBU ONE (21:29)
[2019-08-21] MEDS ORDERED: IPRATROPIUM BROMIDE 0.5 MG/2.5 ML NEBU ONE (21:29)
[2019-08-21] MEDS ORDERED: IPRATROPIUM BROMIDE 0.5 MG/2.5 ML NEBU NEB ONE (21:30)
[2019-08-21] MEDS ORDERED: ALBUTEROL SULFATE 2.5 MG/3 ML NEBU NEB ONE (21:30)
[2019-08-21] MEDS ORDERED: predniSONE 10 MG TABLET PO ONE (21:30)
[2019-08-21] MEDS ORDERED: diphenhydrAMINE 25 MG CAP PO ONE ×2 (21:39→21:45)
--- NOTE | 2019-08-21 21:49 | NUR ---
Patient discharged to home in stable conditon. Written and verbal after care instructions given. Patient verbalizes understanding of instructions. Pt walked out of ER in stable gait. States she feels better. No acute distress noted. Vital signs stable. Respirations even + unlabored.
[2019-08-21 21:51] VITALS: BP 118/77
== END 2019-08-21 21:53 | disposition home or self-care (01) ==
LOC: ER 20:36
DX: R21 Rash and other nonspecific skin eruption (principal); I10 Essential (primary) hypertension; F32.9 Major depressive disorder, single episode, unspecified; F41.9 Anxiety disorder, unspecified; J45.909 Unspecified asthma, uncomplicated; F17.290 Nicotine dependence, other tobacco product, uncomplicated; Z71.6 Tobacco abuse counseling; Z79.899 Other long term (current) drug therapy
CPT/HCPCS: 94640; 99283; 99406; J7512 ×2; Q0163; A4663; J3590

== ENCOUNTER 2019-10-04 20:14 | Emergency (ER) | payer MEDICAID ==
[~2019-10-04] VITALS: Ht 167.6 cm; Wt 71.2 kg
[2019-10-04] MEDS ORDERED: HYDROCODONE/APAP 10-325 MG TABLET PO ONE (20:45)
[2019-10-04] MEDS ORDERED: ONDANSETRON ODT 4 MG TAB.RAPDIS ONE (20:54)
[2019-10-04] MEDS ORDERED: KETOROLAC TROMETHAMINE 30 MG INJ ONE (20:54)
[2019-10-04] MEDS ORDERED: HYDROCODONE/APAP 10-325 MG TABLET ONE (20:55)
[2019-10-04] MEDS ORDERED: ALPRAZOLAM 0.25 MG TABLET ONE (20:55)
[2019-10-04] MEDS ORDERED: ALPRAZOLAM 0.25 MG TABLET PO ONE (21:00)
[2019-10-04] MEDS ORDERED: ONDANSETRON ODT 4 MG TAB.RAPDIS SL ONE (21:00)
[2019-10-04] MEDS ORDERED: KETOROLAC TROMETHAMINE 30 MG INJ IM ONE (21:00)
[2019-10-04] MEDS ORDERED: DEXAMETHASONE SOD PHOSPHATE 4 MG INJ IM ONE (21:15)
[2019-10-04] MEDS ORDERED: DEXAMETHASONE SOD PHOSPHATE 10 MG INJ ONE (21:19)
[2019-10-04] MEDS ORDERED: DEXAMETHASONE SOD PHOSPHATE 4 MG INJ ONE (21:19)
[2019-10-04] MEDS ORDERED: CARISOPRODOL 350 MG TABLET ONE (21:27)
[2019-10-04] MEDS ORDERED: CARISOPRODOL 350 MG TABLET PO ONE (21:30)
[2019-10-04] MEDS ORDERED: HYDROCODONE/APAP 5-325MG TABLET ONE (21:43)
[2019-10-04] MEDS ORDERED: HYDROCODONE/APAP 5-325MG TABLET PO ONE (21:45)
--- NOTE | 2019-10-04 21:50 | NUR ---
Patient discharged to home in stable conditon. Written and verbal after care instructions given. Patient verbalizes understanding of instructions. Pt states she would like to be d/c at this time. Pt walked out of ER in stable gait. Pt states she will be taking an Uber home. No aucte distress noted.
[2019-10-04 21:51] VITALS: BP 110/64
== END 2019-10-04 21:52 | disposition home or self-care (01) ==
LOC: ER 20:16
DX: M54.40 Lumbago with sciatica, unspecified side (principal); G89.29 Other chronic pain; I10 Essential (primary) hypertension; F32.9 Major depressive disorder, single episode, unspecified; F41.9 Anxiety disorder, unspecified; J45.909 Unspecified asthma, uncomplicated; F17.290 Nicotine dependence, other tobacco product, uncomplicated; Z71.6 Tobacco abuse counseling; Z79.899 Other long term (current) drug therapy
CPT/HCPCS: 96372 ×2; 99284; 99406; J1100 ×2; J1885; A4663; Q0162

== ENCOUNTER 2019-10-12 11:24 | Emergency (ER) | payer MEDICAID ==
[~2019-10-12] VITALS: Ht 167.6 cm; Wt 68.0 kg
[~2019-10-12 11:24] MED LIST changes: -PROGESTERON
--- NOTE | 2019-10-12 11:35 | NUR ---
Extra warm blankets & pair of socks were provided, pending MD evaluation, JEN. Patient's respiration:easy, c/o chronic back pains, denies recent trauma, skin warm & dry.
--- NOTE | 2019-10-12 11:54 | NUR ---
Lights dimmed per patient's request, patient is resting on her left side, NAD.
[2019-10-12] MEDS ORDERED: KETOROLAC TROMETHAMINE 30 MG INJ ONE (12:29)
[2019-10-12] MEDS ORDERED: KETOROLAC TROMETHAMINE 30 MG INJ IM ONE (12:30)
--- NOTE | 2019-10-12 12:33 | NUR ---
Readings given to patient re: " Safe Pain Medicine Prescribing in Emergency Departments". Patient discharged to home in stable conditon with brisk steady gait. Written and verbal after care instructions given to patient. Patient verbalizes understanding & compliance of instructions.
== END 2019-10-12 12:35 | disposition home or self-care (01) ==
LOC: ER 11:24
DX: M54.5 Low back pain (principal); I10 Essential (primary) hypertension; F32.9 Major depressive disorder, single episode, unspecified; F41.9 Anxiety disorder, unspecified; J45.909 Unspecified asthma, uncomplicated; F17.200 Nicotine dependence, unspecified, uncomplicated; Z79.899 Other long term (current) drug therapy
CPT/HCPCS: 96372; 99283; J1885; A4663

== ENCOUNTER 2019-10-31 19:54 | Emergency (ER) | payer MEDICAID ==
[~2019-10-31] VITALS: Ht 167.6 cm; Wt 70.3 kg
--- NOTE | 2019-10-31 20:07 | NUR ---
Dr. Cruz at bedside for MSE
[2019-10-31] MEDS ORDERED: KETOROLAC TROMETHAMINE 30 MG INJ IM ONE (20:15)
[2019-10-31] MEDS ORDERED: KETOROLAC TROMETHAMINE 30 MG INJ ONE (20:18)
[2019-10-31] MEDS ORDERED: IV NORMAL SALINE 250 ML IV ONE (20:22)
[2019-10-31] MEDS ORDERED: SWABABLE VALVE TRANSFER SET EA MC ONE (20:22)
[2019-10-31] MEDS ORDERED: IOHEXOL 300MG/ML 100 ML INFUS..BTL ONE (20:22)
[2019-10-31 20:32] LABS: BASOPHILS % (AUTO) 0.6 % (0.0-2.0); EOSINOPHILS # (AUTO) 0.2 K/uL (0.0-0.7); EOSINOPHILS % (AUTO) 2.6 % (0.0-7.0); HEMATOCRIT 40.6 % (31.2-41.9); HEMOGLOBIN 13.7 g/dL (10.9-14.3); LYMPHOCYTES # (AUTO) 1.7 K/uL (20.0-40.0); LYMPHOCYTES % (AUTO) 23.1 % (20.5-51.5); MEAN CORPUSCULAR HEMOGLOBIN 33.4 uug (24.7-32.8); MEAN CORPUSCULAR HGB CONC 34 g/dL (32.3-35.6); MONOCYTES # (AUTO) 0.4 K/uL (2.0-10.0); NEUTROPHILS % (AUTO) 67.7 % (38.5-71.5); PLATELET COUNT (AUTO) 210 K/uL (179-408); WHITE BLOOD COUNT (AUTO) 7.4 K/uL (3.8-11.8)
--- NOTE | 2019-10-31 20:35 | NUR ---
Patient taken to CT scan in stable condition
[2019-10-31 20:41] LABS: POTASSIUM 4.3 mmol/L (3.5-5.1)
[2019-10-31 20:52] LABS: BILIRUBIN,DIRECT 0.1 mg/dL (0.0-0.2); BILIRUBIN,TOTAL 0.3 mg/dL (0.2-1.0); TOTAL PROTEIN, SERUM 6.9 g/dL (6.4-8.2)
--- NOTE | 2019-10-31 20:55 | NUR ---
Patient back from CT scan in stable condition
[2019-10-31] MEDS ORDERED: HYDROCODONE/APAP 5-325MG TABLET ONE (21:34)
[2019-10-31] MEDS ORDERED: HYDROCODONE/APAP 5-325MG TABLET PO ONE (21:45)
[2019-10-31 21:53] LABS: *URINE HCG, QUAL NEGATIVE (NEGATIVE)
[2019-10-31 21:59] LABS: *BILIRUBIN,URIN NEGATIVE (NEGATIVE); *BLOOD, URINE TRACE (NEGATIVE); *CLARITY,URINE CLEAR (CLEAR); *COLOR,URINE YELLOW (YELLOW); *KETONES,URINE NEGATIVE (NEGATIVE); *UROBILINOGEN,URINE 0.2 E.U./dl (NORMAL); LEUKOCYTE ESTERASE ,URINE NEGATIVE (NEGATIVE); NITRITE, URINE NEGATIVE (NEGATIVE); UGLUCOSE NEGATIVE (NEGATIVE)
[2019-10-31 22:00] LABS: MUCUS,URINE FEW /LPF (0-FEW); SQUAMOUS EPITHELIAL CELL,UR FEW /HPF (NONE SEEN); WBC,URINE 0-3 /HPF (0-3)
--- NOTE | 2019-10-31 22:05 | NUR ---
Patient awake and oriented. watching videos on the phone. NAD noted.
--- NOTE | 2019-10-31 23:10 | NUR ---
Patient discharged to home in stable conditon. Written and verbal after care instructions given. Patient verbalizes understanding of instructions. Ambulated with steady gait.
[2019-10-31 23:12] VITALS: BP 110/70
== END 2019-10-31 23:13 | disposition home or self-care (01) ==
LOC: ER 19:54
DX: R10.32 Left lower quadrant pain (principal); I10 Essential (primary) hypertension; F32.9 Major depressive disorder, single episode, unspecified; F41.9 Anxiety disorder, unspecified; J45.909 Unspecified asthma, uncomplicated; F17.200 Nicotine dependence, unspecified, uncomplicated; Z79.899 Other long term (current) drug therapy
CPT/HCPCS: 36415; 74176; 80048; 80076; 81000; 81001; 83690; 84703; 85025; 99284; J1885; Q9967; A4663; J7050

== ENCOUNTER 2019-12-06 20:54 | Emergency (ER) | payer MEDICAID ==
[~2019-12-06] VITALS: Ht 167.6 cm; Wt 68.9 kg
--- NOTE | 2019-12-06 21:25 | NUR ---
URINE TAKEN TO LAB
[2019-12-06] MEDS ORDERED: KETOROLAC TROMETHAMINE 60 MG INJ IM ONE ×2 (21:57→22:00)
--- NOTE | 2019-12-06 22:27 | NUR ---
Patient discharged to home in stable conditon. Written and verbal after care instructions given. Patient verbalizes understanding of instructions. Patient ambulating with steady gait
[2019-12-06 22:38] VITALS: BP 114/66
== END 2019-12-06 22:27 | disposition home or self-care (01) ==
LOC: ER 20:54
DX: G89.29 Other chronic pain (principal); M54.5 Low back pain; I10 Essential (primary) hypertension; F32.9 Major depressive disorder, single episode, unspecified; F41.9 Anxiety disorder, unspecified; J45.909 Unspecified asthma, uncomplicated; Z79.899 Other long term (current) drug therapy
CPT/HCPCS: 96372; 99283; J1885; A4663

== ENCOUNTER 2020-01-04 15:36 | Emergency (ER) | payer MEDICAID ==
[~2020-01-04] VITALS: Ht 167.6 cm; Wt 69.9 kg
[2020-01-04] MEDS ORDERED: KETOROLAC TROMETHAMINE 60 MG INJ IM ONE ×2 (16:14→16:15)
--- NOTE | 2020-01-04 16:48 | NUR ---
PATIENT WAS SEEN BY MD. MED GIVEN ORDERED. PATIENT STATES PAIN IS STARTING TO DIMINISH. DC, RX AND FOLLOW UP INSTRUCTIONS GIVEN AND EXPLAINED TO PATIENT WHO STATES SHE UNDERSTANDS ALL INSTRUCTIONS.
== END 2020-01-04 16:52 | disposition home or self-care (01) ==
LOC: ER 15:38
DX: S16.1XXA Strain of muscle, fascia and tendon at neck level, initial encounter (principal); M54.2 Cervicalgia; I10 Essential (primary) hypertension; F41.9 Anxiety disorder, unspecified; G89.29 Other chronic pain; F17.200 Nicotine dependence, unspecified, uncomplicated; Z79.899 Other long term (current) drug therapy; X58.XXXA Exposure to other specified factors, initial encounter; Y93.89 Activity, other specified; Y92.89 Other specified places as the place of occurrence of the external cause; Y99.8 Other external cause status
CPT/HCPCS: 72040; 96372; 99283; J1885; A4663

== ENCOUNTER 2020-02-17 16:52 | Emergency (ER) | payer MEDICAID ==
[~2020-02-17] VITALS: Ht 165.1 cm; Wt 69.9 kg
[2020-02-17] MEDS ORDERED: KETOROLAC TROMETHAMINE 30 MG INJ ONE (17:15)
[2020-02-17] MEDS ORDERED: KETOROLAC TROMETHAMINE 30 MG INJ IM ONE (17:15)
--- NOTE | 2020-02-17 17:23 | NUR ---
Patient discharged to home in stable condition. Written and verbal after care instructions given. Patient verbalizes understanding of instructions. PT WALKS IN STEADY GAIT.Stressed follow up or return to ER for worsening s/s.
== END 2020-02-17 17:25 | disposition home or self-care (01) ==
LOC: ER 16:54
DX: L50.9 Urticaria, unspecified (principal); G89.29 Other chronic pain; M54.5 Low back pain; I10 Essential (primary) hypertension; J45.909 Unspecified asthma, uncomplicated; Z79.899 Other long term (current) drug therapy
CPT/HCPCS: A4663; J1885

== ENCOUNTER 2020-02-28 05:19 | Inpatient (IN) | payer MEDICAID ==
[~2020-02-28] VITALS: Ht 167.6 cm; Wt 70.3 kg
--- NOTE | 2020-02-28 05:30 | NUR ---
Pt provided urine sample, sent to lab.
--- NOTE | 2020-02-28 05:43 | NUR ---
Dr. Be at bedside for MSE.
[2020-02-28] MEDS ORDERED: DICYCLOMINE HCL 20 MG TABLET PO STA (05:52)
[2020-02-28] MEDS ORDERED: LIDOCAINE VISCUS 2% 15 ML UDC MM ONE (06:00)
[2020-02-28] MEDS ORDERED: MAG HYDROX/AL HYDROX/SIMETH 30 ML LIQUID UDC PO ONE (06:00)
--- NOTE | 2020-02-28 06:13 | NUR ---
Xray at bedside.
[2020-02-28] MEDS ORDERED: DICYCLOMINE HCL LIQ 10 MG/5 ML UDC PO ONE (06:15)
[2020-02-28 06:23] LABS: *BILIRUBIN,URIN NEGATIVE (NEGATIVE); *BLOOD, URINE NEGATIVE (NEGATIVE); *CLARITY,URINE CLEAR (CLEAR); *COLOR,URINE YELLOW (YELLOW); *KETONES,URINE NEGATIVE (NEGATIVE); *UROBILINOGEN,URINE 0.2 E.U./dl (NORMAL); LEUKOCYTE ESTERASE ,URINE NEGATIVE (NEGATIVE); NITRITE, URINE NEGATIVE (NEGATIVE); PH,URINE 5.5 (5.0-8.0); UGLUCOSE NEGATIVE (NEGATIVE)
[2020-02-28] MEDS ORDERED: ONDANSETRON 4 MG/2 ML VIAL IM ONE (06:45)
[2020-02-28] MEDS ORDERED: HYDROMORPHONE 1 MG/1 ML DISP.SYRIN IM ONE (06:45)
[2020-02-28] MEDS ORDERED: ONDANSETRON 4 MG/2 ML VIAL ONE (06:46)
[2020-02-28] MEDS ORDERED: HYDROMORPHONE 2 MG/1 ML DISP.SYRIN ONE (06:46)
--- NOTE | 2020-02-28 06:52 | NUR ---
Report given to Miguelangel jolley.
[2020-02-28 07:46] LABS: BASOPHILS % (AUTO) 0.4 % (0.0-2.0); EOSINOPHILS # (AUTO) 0.3 K/uL (0.0-0.7); EOSINOPHILS % (AUTO) 3.1 % (0.0-7.0); HEMATOCRIT 40.6 % (31.2-41.9); HEMOGLOBIN 13.6 g/dL (10.9-14.3); LYMPHOCYTES # (AUTO) 1.7 K/uL (20.0-40.0); LYMPHOCYTES % (AUTO) 14.6 % (20.5-51.5); MEAN CORPUSCULAR HGB CONC 34 g/dL (32.3-35.6); MEAN CORPUSCULAR VOLUME 98.2 fL (75.5-95.3); MONOCYTES # (AUTO) 1.1 K/uL (2.0-10.0); MONOCYTES % (AUTO) 9.7 % (0.0-11.0); NEUTROPHILS # (AUTO) 8.2 K/uL (1.8-8.9); NEUTROPHILS % (AUTO) 72.2 % (38.5-71.5); PLATELET COUNT (AUTO) 212 K/uL (179-408); RED BLOOD CELL COUNT(AUTO) 4.14 MIL/uL (3.63-4.92); WHITE BLOOD COUNT (AUTO) 11.3 K/uL (3.8-11.8)
[2020-02-28 08:08] LABS: BILIRUBIN,DIRECT 0.1 mg/dL (0.0-0.2); BILIRUBIN,TOTAL 0.5 mg/dL (0.2-1.0); CREATININE 1.2 mg/dL (0.6-1.3); POTASSIUM 4.1 mmol/L (3.5-5.1); TOTAL PROTEIN, SERUM 6.7 g/dL (6.4-8.2)
[2020-02-28] MEDS ORDERED: diphenhydrAMINE 50 MG/1 ML VIAL ONE (08:11)
[2020-02-28] MEDS ORDERED: diphenhydrAMINE 50 MG/1 ML VIAL IM ONE (08:15)
[2020-02-28] MEDS ORDERED: IV NORMAL SALINE 1000 ML BAG IV ONE (08:30)
--- NOTE | 2020-02-28 10:12 | NUR ---
REPORT WAS GIVEN TO RN M/S. PT WAS TRANSFERED TO ROOM #301A.
[2020-02-28] MEDS ORDERED: Z GUARD REMEDY PASTE 57 GM TUBE TOP PRN (10:15)
[2020-02-28] MEDS ORDERED: ALBUTEROL SULFATE 8 GM HFA.AER.AD INH SCH (10:15)
[2020-02-28] MEDS ORDERED: ONDANSETRON 4 MG/2 ML VIAL IV PRN (10:15)
[2020-02-28] MEDS ORDERED: ACETAMINOPHEN 325 MG TABLET PO PRN (10:15)
[2020-02-28] MEDS ORDERED: ALBUTEROL SULFATE 2.5 MG/3 ML NEBU NEB PRN (10:30)
[2020-02-28 11:32] VITALS: BP 120/31
[2020-02-28] MEDS: ENOXAPARIN SODIUM 40 MG/0.4 ML DISP.SYRIN SQ SCH (12:06)
[2020-02-28] MEDS: IV NS 1000 ML 1,000 ML IV PRN ×2 (12:37→23:00)
[2020-02-28] MEDS: MORPHINE SULFATE 2 MG/1 ML DISP.SYRIN IV PRN ×3 (12:44→21:38)
[2020-02-28] MEDS: diphenhydrAMINE 25 MG CAP PO PRN (14:04)
[2020-02-28 16:08] VITALS: BP 109/64
--- NOTE | 2020-02-28 19:00 | NUR ---
RESIDENT ALERT ORIENTED, NO SOB NO CHEST PAIN, CONT ON PAIN MANAGEMENT OF THE ABDOMEN. PATIENT REMAINS NPO, CONT TO MONITOR.
[2020-02-28 20:01] VITALS: BP 111/53
[2020-02-29] MEDS: diphenhydrAMINE 25 MG CAP PO PRN (01:28)
[2020-02-29] MEDS: MORPHINE SULFATE 2 MG/1 ML DISP.SYRIN IV PRN ×4 (01:28→17:15)
--- NOTE | 2020-02-29 02:00 | NUR ---
PATIENT ALERT ORIENTED, TOO NEEDY AND MANIPULATIVE. PATIENT NEEDS WAS ALL ATTENDED, PATIENT EXPRESSED SADNESS DUE TO RELATIONSHIPS ISSUES, WITH ALSO MULTIPLE EPISODES OF ANXIETY, CONT TO MONITOR.
--- NOTE | 2020-02-29 03:04 | NUR ---
NOTIFY DR. MONTALVO PATIENT UNABLE TO FALL ASLEEP, WITH ORDER AMBIEN 5MG PO HS PRN.
[2020-02-29] MEDS ORDERED: ZOLPIDEM 5 MG TABLET PO PRN (03:15)
[2020-02-29 04:21] VITALS: BP 93/51
--- NOTE | 2020-02-29 07:08 | NUR ---
PATIENT ASLEEP BUT EASILY AROUSABLE, NO SOB NO CHEST PAIN. PATIENT ON PAIN MANAGEMENT DUE PANCREATITIS. PATIENT NON COMPLIANT WITH NPO ORDERS, KEPT ASKING FOR ICE CHIPS. PATIENT HAS EPISODE OF RESTLESSNESS, ANXIETY, REDIRECT PATIENT WITH SOME HELP. PATIENT WAS INSERTED IV LINE TWICE DUE DISLODGEMENT, RESTLESS WITH HER ARMS AND UNCOOPERATIVE WITH CARE. CONT TO MONITOR.
[2020-02-29 07:16] LABS: BASOPHILS # (AUTO) 0.1 K/uL (0.0-8.0); BASOPHILS % (AUTO) 1.1 % (0.0-2.0); EOSINOPHILS # (AUTO) 0.3 K/uL (0.0-0.7); EOSINOPHILS % (AUTO) 3.8 % (0.0-7.0); HEMATOCRIT 38.9 % (31.2-41.9); LYMPHOCYTES # (AUTO) 2.2 K/uL (20.0-40.0); MEAN CORPUSCULAR HEMOGLOBIN 33.3 uug (24.7-32.8); MEAN CORPUSCULAR HGB CONC 34 g/dL (32.3-35.6); MEAN CORPUSCULAR VOLUME 99.4 fL (75.5-95.3); MONOCYTES # (AUTO) 0.5 K/uL (2.0-10.0); MONOCYTES % (AUTO) 7.4 % (0.0-11.0); NEUTROPHILS # (AUTO) 4.1 K/uL (1.8-8.9); NEUTROPHILS % (AUTO) 56.7 % (38.5-71.5); PLATELET COUNT (AUTO) 197 K/uL (179-408); RED BLOOD CELL COUNT(AUTO) 3.92 MIL/uL (3.63-4.92); WHITE BLOOD COUNT (AUTO) 7.1 K/uL (3.8-11.8)
[2020-02-29 07:32] LABS: CREATININE 0.9 mg/dL (0.6-1.3); MAGNESIUM 2.5 mg/dL (1.8-2.4); PHOSPHOROUS 3.1 mg/dL (2.5-4.9); POTASSIUM 4.2 mmol/L (3.5-5.1)
[2020-02-29] MEDS ORDERED: IV NS 1000 ML 500 ML IV ONE (08:00)
--- NOTE | 2020-02-29 08:00 | NUR ---
[facility]ON KING HAND FRETTED INSTRUMENT MAKER IN TO REVIEW LAB RESULTS EXPLAIN PLAN OF CARE WITH PMD AND ANY SPECIALISTS NEEDED TO DX AND TX REMAINING SYMPTOMS. ETOH ABUSE AND DETRIMENTAL CONSEQUENCES DISCUSSED WITH PT. PT. INFORMED OF DISCHARGE TODAY IF TOLERATING DIET. PT. STATED I DON'T WANT TO GO HOME TODAY. I'MM TOO SICK AND I THINK MY SYMPTOMS ARE GETTING WORSE. PT. RE-INSTRUCTED THAT SHE NEEDS TO FOLLOW-UP WITH HER PMD.
[2020-02-29] MEDS ORDERED: Medication Not On Formulary EA (Escitalopram Oxalate (Lexapro) 1 TAB) PO SCH (09:00)
[2020-02-29] MEDS ORDERED: NICOTINE 7 MG/24HR PATCH TD SCH (09:00)
[2020-02-29] MEDS ORDERED: PANTOPRAZOLE SODIUM 40 MG VIAL IV SCH (09:00)
[2020-02-29] MEDS ORDERED: [UNRECOGNIZED DRUG - OTHER] PO SCH (09:00)
[2020-02-29] MEDS ORDERED: AMPHET PO SCH (09:00)
[2020-02-29] MEDS ORDERED: D AMPHET PO SCH (09:00)
[2020-02-29] MEDS ORDERED: ESCITALOPRAM OXALATE 10 MG TABLET PO SCH (09:00)
[2020-02-29] MEDS ORDERED: AMPHET ASP PO SCH (09:00)
[2020-02-29] MEDS: ENOXAPARIN SODIUM 40 MG/0.4 ML DISP.SYRIN SQ SCH (09:04)
[2020-02-29 11:12] VITALS: BP 131/58
--- NOTE | 2020-02-29 12:00 | NUR ---
PT. STATES I HOPE I WON'T HAVE TO GO HOME TODAY. I FEEL AWFUL AND NEED PAIN MEDICATION. IF THEY DISCHARGE ME I WILL END UP IN THE ER---I WILL GO RIGHT BACK TO THE ER.
--- NOTE | 2020-02-29 15:00 | NUR ---
PT. C/O ABD. PAIN AND STATES I'M SURE I HAVE A UTI. KINGSTON CASTELLANOS NOTIFIED---STAT UA ORDERED.
[2020-02-29 15:51] VITALS: BP 129/85
--- NOTE | 2020-02-29 16:00 | NUR ---
DR. MONZON IN TO SEE PT. FOR PSYCH CONSULT. PT. VERY DEFENSIVE AND SUSPICIOUS AND TOLD DR. SHE WOULD SEE HER OWN MD AND DID NOT NEED HIS HELP
--- NOTE | 2020-02-29 17:00 | NUR ---
URINE SPEC. TAKEN TO THE LAB BY RN----CLEAN CATCH URINE SPEC.
--- NOTE | 2020-02-29 17:00 | NUR ---
PT. MEDICATED MULTIPLE TIMES FOR C/O PAIN PER ORDERS WITH RELIEF.
[2020-02-29 18:25] LABS: *BILIRUBIN,URIN NEGATIVE (NEGATIVE); *CLARITY,URINE CLEAR (CLEAR); *COLOR,URINE LIGHT YELLOW (YELLOW); *KETONES,URINE NEGATIVE (NEGATIVE); *UROBILINOGEN,URINE 0.2 E.U./dl (NORMAL); LEUKOCYTE ESTERASE ,URINE NEGATIVE (NEGATIVE); NITRITE, URINE NEGATIVE (NEGATIVE); PH,URINE 5.5 (5.0-8.0); UGLUCOSE NEGATIVE (NEGATIVE)
[2020-02-29 18:29] LABS: *BLOOD, URINE TRACE (NEGATIVE)
--- NOTE | 2020-02-29 18:30 | NUR ---
PT. INFORMED THAT HER URINE IS CLEAR AND SHE WILL BE DISCHARGED. PT. VERY UPSET DEMANDING TO TALK WITH SUPERVISORS STATING SHE DOES NOT WANT TO GO HOME AND NEEDS A RX FOR PAIN MEDICATION AND MOST LIKELY WILL BE RETURNING TO THE ER FOR MORE PAIN MEDS IF DISCHARGED. KINGSTON CASTELLANOS AND NURSING CLINICAL INFORMATICS STRATEGIST NOTIFIED OF ALL OF THE ABOVE INTERACTIONS WITH PT.
[2020-02-29 18:32] LABS: RBC,URINE 0-3 /HPF (0-3); SQUAMOUS EPITHELIAL CELL,UR FEW /HPF (NONE SEEN); WBC,URINE NONE SEEN /HPF (0-3)
[2020-02-29 20:00] VITALS: BP 120/57
[2020-02-29 20:04] VITALS: BP 142/84
--- NOTE | 2020-02-29 20:10 | NUR ---
pt refusing to be discharged unless she gets prescription for pain meds from jesusita cueto,bashir., undersigned had a lengthy conversation with pt and active listening provided. multiple requests to be connected to the school lunch monitor md so she can have her preferred pain meds ordered, both jesusita cueto and dr marin yoon aware of pt"sdemands, no pain meds ordered . instructed pt that she can get over the counter medsl like advil as recommened by bonilla cueto. pt go anxious and stated"this hospital will be in so much trouble, i was not treated right, i have problems but that dr mc never took care of"
--- NOTE | 2020-02-29 20:21 | NUR ---
NOTIFY KING[facility]ON KING COMPLIANCE FIELD TECHNICIAN REGARDING PATIENT REQUEST FOR PO PAIN MEDS PRESCRIPTION FOR AT LEAST A WEEK BEFORE DISCHARGE, COMPLIANCE FIELD TECHNICIAN ORDER ADVIL OTC MEDICATIONS AT THIS TIME.
--- NOTE | 2020-02-29 20:23 | NUR ---
PLACE A CALL TO DR BASILIO CAMARA BRIMMER BLOCKER AT THIS TIME, AWAITING FOR RESPONSE.
--- NOTE | 2020-02-29 20:35 | NUR ---
dc paperworks provided to pt and signed appropriately, belonging list inventoried and signed.pt remained calm , awaiting for son to pick her up.
--- NOTE | 2020-02-29 21:10 | NUR ---
dc via w/c with all her belongings, in apparently fair condition.
== END 2020-02-29 21:30 | disposition home or self-care (01) | DRG 282 ==
LOC: ER 05:23 → MEDSURG3 09:38
PROVIDERS: ADMIT Registered Nurse; ATTEND Registered Nurse
DX: K85.20 Alcohol induced acute pancreatitis without necrosis or infection (principal); F10.10 Alcohol abuse, uncomplicated; I10 Essential (primary) hypertension; F17.210 Nicotine dependence, cigarettes, uncomplicated; F32.9 Major depressive disorder, single episode, unspecified; G89.29 Other chronic pain; J45.909 Unspecified asthma, uncomplicated; K80.20 Calculus of gallbladder without cholecystitis without obstruction; Z76.5 Malingerer [conscious simulation]; F41.9 Anxiety disorder, unspecified; Y90.9 Presence of alcohol in blood, level not specified; R79.89 Other specified abnormal findings of blood chemistry; M26.609 Unspecified temporomandibular joint disorder, unspecified side
CPT/HCPCS: 36415; 70030-TC; 71045; 83690; 83735; 84100; 84443; 85025; 87086; 93005; A4663; A9150; C9113; G0378; J1170; J1200; J1650; J2270; J2405; J7030; J7040; Q0163

== ENCOUNTER 2020-03-19 21:12 | Emergency (ER) | payer MEDICAID ==
[~2020-03-19] VITALS: Ht 167.6 cm; Wt 69.9 kg
--- NOTE | 2020-03-19 21:30 | NUR ---
Dr. Florian at bedside for MSE
--- NOTE | 2020-03-19 21:45 | NUR ---
Patient discharged to home in stable condition. Written and verbal after care instructions given. Patient verbalizes understanding of instructions. Stressed follow up or return to ER for worsening s/s. Patient ambulating with steady gait. NAD noted
[2020-03-19 21:52] VITALS: BP 128/63
== END 2020-03-19 21:45 | disposition home or self-care (01) ==
LOC: ER 21:12
DX: G89.18 Other acute postprocedural pain (principal); R10.84 Generalized abdominal pain; Z90.49 Acquired absence of other specified parts of digestive tract; F17.200 Nicotine dependence, unspecified, uncomplicated; J45.909 Unspecified asthma, uncomplicated; I10 Essential (primary) hypertension; F32.9 Major depressive disorder, single episode, unspecified; Z79.899 Other long term (current) drug therapy
CPT/HCPCS: A4663

== ENCOUNTER 2020-03-27 19:44 | Emergency (ER) | payer MEDICAID ==
[~2020-03-27] VITALS: Ht 167.6 cm; Wt 66.7 kg
[2020-03-27] MEDS ORDERED: VALA500T PO (19:55)
[2020-03-27] MEDS ORDERED: BUPR150T5 PO (19:55)
[2020-03-27] MEDS ORDERED: CEPH-570 PO (19:56)
[2020-03-27] MEDS ORDERED: GERD MED (19:56)
--- NOTE | 2020-03-27 20:05 | NUR ---
Patient brought herself in to ER with steady gait. AO x 4. Brought herself for on and off abdominal pain. Denies chest pain and other discomfort. No GI/ symptoms. Sitting up in bed at this time. Fall and safety precautions maintained.
--- NOTE | 2020-03-27 20:10 | NUR ---
Dr. Mann is at bedside for MSE.
[2020-03-27] MEDS: ACETAMINOPHEN/CODEINE 300-30 MG TABLET PO ONE ×2 (20:31→20:40)
[2020-03-27] MEDS ORDERED: ACETAMINOPHEN/CODEINE 300-30 MG TABLET ONE (20:34)
[2020-03-27 20:39] LABS: *BILIRUBIN,URIN NEGATIVE (NEGATIVE); *COLOR,URINE YELLOW (YELLOW); *KETONES,URINE NEGATIVE (NEGATIVE); *UROBILINOGEN,URINE 0.2 E.U./dl (NORMAL); LEUKOCYTE ESTERASE ,URINE NEGATIVE (NEGATIVE); NITRITE, URINE NEGATIVE (NEGATIVE); PH,URINE 7.5 (5.0-8.0); UGLUCOSE NEGATIVE (NEGATIVE)
--- NOTE | 2020-03-27 20:41 | NUR ---
Pt stated that her pain is much better, Dr. Mann also explained everything related to her disease process and all her questions were answered. Patient discharged to home in stable condition. Written and verbal after care instructions given. Patient verbalizes understanding of instructions. Stressed follow up or return to ER for worsening s/s. Pt verbalized that she has a ride and acknowledges that she cannot drive or operate machineries after Tylenol # 3 was given. Left ER in stable condition, steady gait.
[2020-03-27 20:44] VITALS: BP 140/90
[2020-03-27 20:45] LABS: *BLOOD, URINE TRACE (NEGATIVE); *CLARITY,URINE SLIGHTLY HAZY (CLEAR)
[2020-03-27 20:47] LABS: MUCUS,URINE FEW /LPF (0-FEW); RBC,URINE 0-3 /HPF (0-3); SQUAMOUS EPITHELIAL CELL,UR FEW /HPF (NONE SEEN); URINE AMORPHOUS PHOSPHATES MODERATE /HPF; WBC,URINE 0-3 /HPF (0-3)
== END 2020-03-27 20:45 | disposition home or self-care (01) ==
LOC: ER 19:47
DX: R10.12 Left upper quadrant pain (principal); R10.32 Left lower quadrant pain; G89.4 Chronic pain syndrome; Z90.49 Acquired absence of other specified parts of digestive tract; I10 Essential (primary) hypertension; F17.200 Nicotine dependence, unspecified, uncomplicated
CPT/HCPCS: A4663

== ENCOUNTER 2020-04-03 22:23 | Emergency (ER) | payer MEDICAID ==
[~2020-04-03] VITALS: Ht 167.6 cm; Wt 65.3 kg
[~2020-04-03 22:23] MED LIST changes: +BUPR150T5 PO; +CEPH-570 PO; +GERD MED; +VALA500T PO
--- NOTE | 2020-04-03 22:50 | NUR ---
Pt provided urine sample, sent to lab.
--- NOTE | 2020-04-03 22:52 | NUR ---
Dr. Mann at bedside for MSE.
[2020-04-03] MEDS ORDERED: ACETAMINOPHEN/CODEINE 300-30 MG TABLET PO ONE (23:00)
[2020-04-03] MEDS ORDERED: ACETAMINOPHEN/CODEINE 300-30 MG TABLET ONE (23:06)
[2020-04-03] MEDS ORDERED: HYDROCODONE/APAP 10-325 MG TABLET ONE (23:09)
[2020-04-03] MEDS ORDERED: HYDROCODONE/APAP 10-325 MG TABLET PO ONE (23:15)
[2020-04-03 23:20] LABS: BASOPHILS # (AUTO) 0.1 K/uL (0.0-8.0); EOSINOPHILS # (AUTO) 0.5 K/uL (0.0-0.7); EOSINOPHILS % (AUTO) 6.5 % (0.0-7.0); HEMOGLOBIN 12.8 g/dL (10.9-14.3); LYMPHOCYTES # (AUTO) 2.1 K/uL (20.0-40.0); LYMPHOCYTES % (AUTO) 28.7 % (20.5-51.5); MEAN CORPUSCULAR HEMOGLOBIN 34.4 uug (24.7-32.8); MEAN CORPUSCULAR HGB CONC 36 g/dL (32.3-35.6); MEAN CORPUSCULAR VOLUME 96.6 fL (75.5-95.3); MONOCYTES # (AUTO) 0.5 K/uL (2.0-10.0); MONOCYTES % (AUTO) 6.5 % (0.0-11.0); NEUTROPHILS # (AUTO) 4.2 K/uL (1.8-8.9); NEUTROPHILS % (AUTO) 57.3 % (38.5-71.5); PLATELET COUNT (AUTO) 192 K/uL (179-408); RED BLOOD CELL COUNT(AUTO) 3.73 MIL/uL (3.63-4.92); WHITE BLOOD COUNT (AUTO) 7.3 K/uL (3.8-11.8)
[2020-04-03 23:26] LABS: CREATININE 1.3 mg/dL (0.6-1.3); POTASSIUM 4.2 mmol/L (3.5-5.1)
[2020-04-03 23:29] LABS: *BILIRUBIN,URIN NEGATIVE (NEGATIVE); *BLOOD, URINE NEGATIVE (NEGATIVE); *CLARITY,URINE CLEAR (CLEAR); *COLOR,URINE YELLOW (YELLOW); *KETONES,URINE NEGATIVE (NEGATIVE); *UROBILINOGEN,URINE 0.2 E.U./dl (NORMAL); LEUKOCYTE ESTERASE ,URINE NEGATIVE (NEGATIVE); NITRITE, URINE NEGATIVE (NEGATIVE); UGLUCOSE NEGATIVE (NEGATIVE)
[2020-04-03 23:31] LABS: BILIRUBIN,DIRECT 0.1 mg/dL (0.0-0.2); BILIRUBIN,TOTAL 0.4 mg/dL (0.2-1.0); TOTAL PROTEIN, SERUM 6.7 g/dL (6.4-8.2)
[2020-04-04] MEDS ORDERED: HYDROCODONE/APAP 10-325 MG TABLET PO ONE
[2020-04-04] MEDS ORDERED: HYDROCODONE/APAP 10-325 MG TABLET ONE (00:05)
--- NOTE | 2020-04-04 00:10 | NUR ---
Pt out of ER for CT.
--- NOTE | 2020-04-04 00:17 | NUR ---
Pt back to ER from CT.
--- NOTE | 2020-04-04 00:55 | NUR ---
Patient discharged to home in stable condition. Written and verbal after care instructions given. Patient verbalizes understanding of instructions. Stressed follow up or return to ER for worsening s/s. Pt ambulated out of ER with steady gait, no acute signs of distress, VSS, all belongings taken.
[2020-04-04 00:57] VITALS: BP 110/75
== END 2020-04-04 01:00 | disposition home or self-care (01) ==
LOC: ER 22:26
DX: R10.9 Unspecified abdominal pain (principal); G89.4 Chronic pain syndrome; I10 Essential (primary) hypertension; J45.909 Unspecified asthma, uncomplicated; Z72.0 Tobacco use; Z90.49 Acquired absence of other specified parts of digestive tract
CPT/HCPCS: 36415; 83690; 85025; 85730; A4663

== ENCOUNTER 2020-04-24 21:23 | Emergency (ER) | payer MEDICAID ==
[~2020-04-24] VITALS: Ht 167.6 cm; Wt 66.7 kg
--- NOTE | 2020-04-24 21:35 | NUR ---
PATIENT ARRIVED AT THE ER WITH C/O BO-ORBITAL RASH/PAIN X 6 DAYS.
--- NOTE | 2020-04-24 22:00 | NUR ---
Dr. Be at bedside for MSE.
--- NOTE | 2020-04-24 22:38 | NUR ---
Patient discharged to home in stable condition. Written and verbal after care instructions given. Patient verbalizes understanding of instructions. Stressed follow up or return to ER for worsening s/s. Pt ambulated out of the ER with steady gait. All belongings with pt.
[2020-04-24 23:07] VITALS: BP 135/82
[2020-04-25] MEDS ORDERED: [UNRECOGNIZED DRUG - REMARK] (21:33)
== END 2020-04-24 22:38 | disposition home or self-care (01) ==
LOC: ER 21:27
DX: H00.011 Hordeolum externum right upper eyelid (principal); I10 Essential (primary) hypertension; F41.9 Anxiety disorder, unspecified; J45.909 Unspecified asthma, uncomplicated; F32.9 Major depressive disorder, single episode, unspecified; Z79.899 Other long term (current) drug therapy
CPT/HCPCS: A4663

== ENCOUNTER 2020-04-25 21:22 | Emergency (ER) | payer MEDICAID ==
[~2020-04-25] VITALS: Ht 167.6 cm; Wt 64.0 kg
[2020-04-25] MEDS ORDERED: [UNRECOGNIZED DRUG - REMARK] (21:33)
--- NOTE | 2020-04-25 21:36 | NUR ---
Dr. Mann at bedside for MSE
[2020-04-25] MEDS ORDERED: SULFAMETH/TRIMETH 800/160 MG TABLET PO ONE (21:45)
[2020-04-25] MEDS ORDERED: SULFAMETH/TRIMETH 800/160 MG TABLET ONE (21:49)
--- NOTE | 2020-04-25 21:50 | NUR ---
Patient discharged to home in stable condition. Written and verbal after care instructions given. Patient verbalizes understanding of instructions. Stressed follow up or return to ER for worsening s/s. AA/Ox4. able to speak in complete sentences. follows commands respirations even and unlabored no s/s of distress all belongings with pt ambulatory with steady gait
[2020-04-25 21:54] VITALS: BP 139/93
== END 2020-04-25 21:50 | disposition home or self-care (01) ==
LOC: ER 21:25
DX: H00.021 Hordeolum internum right upper eyelid (principal); F41.9 Anxiety disorder, unspecified; G89.4 Chronic pain syndrome; R60.0 Localized edema
CPT/HCPCS: A4663

== ENCOUNTER 2020-05-08 05:12 | Emergency (ER) | payer MEDICAID ==
[~2020-05-08] VITALS: Ht 167.6 cm; Wt 64.0 kg
[~2020-05-08 05:12] MED LIST changes: +[UNRECOGNIZED DRUG - REMARK]
--- NOTE | 2020-05-08 05:55 | NUR ---
Dr. Be at bedside for MSE.
[2020-05-08] MEDS ORDERED: CYCLOBENZAPRINE HCL 10 MG TABLET PO ONE (06:00)
[2020-05-08] MEDS ORDERED: KETOROLAC TROMETHAMINE 60 MG INJ IM ONE ×2 (06:00→06:04)
[2020-05-08] MEDS ORDERED: CYCLOBENZAPRINE HCL 10 MG TABLET ONE (06:04)
--- NOTE | 2020-05-08 06:07 | NUR ---
Pt refused Flexeril at the time of administration. notified. Wasted medication.
[2020-05-08] MEDS ORDERED: METHOCARBAMOL 500 MG TABLET ONE (06:11)
--- NOTE | 2020-05-08 06:11 | NUR ---
changed muscle relaxant to Robaxin, however pt refused the medication again stating, "Those non-narcotics do not work for me." Relayed to .
[2020-05-08] MEDS ORDERED: METHOCARBAMOL 500 MG TABLET PO ONE (06:15)
[2020-05-08] MEDS ORDERED: HYDROCODONE/APAP 5-325MG TABLET ONE (06:19)
[2020-05-08] MEDS ORDERED: HYDROCODONE/APAP 5-325MG TABLET PO ONE (06:30)
--- NOTE | 2020-05-08 06:44 | NUR ---
Pt was cleared for discharge. Written and verbal after care instructions given. Patient verbalizes understanding of instructions. Pt however was very unhappy that MD did not prescribe any narcotics for her, and patient requested to stay in the room for a few minutes, and RN agreed. Stressed follow up or return to ER for worsening s/s. However, patient started demanding that lights be turned off immediately, and when she was not followed right away, she called the RN, "a bitch" and a "fat bitch" and was yelling in the room in a very demeaning manner to RN, "you don't even look like a nurse" and other comments. Pt appeared to be projecting anger to RN after not getting what she wanted from MD, so RN reinforced boundaries with patient and stated, "Please, you do not talk to any of us this way." Left the room immediately and security was called right away to avoid any tension with the patient. As soon as security arrived. Pt became very pleasant to everyone and threatened to report RN. Pt ambulated out of ER in steady gait.
[2020-05-08 06:57] VITALS: BP 124/77
== END 2020-05-08 06:50 | disposition home or self-care (01) ==
LOC: ER 05:16
DX: M54.5 Low back pain (principal); M79.604 Pain in right leg; I10 Essential (primary) hypertension; F32.9 Major depressive disorder, single episode, unspecified; Z79.899 Other long term (current) drug therapy
CPT/HCPCS: 96372; 99283; J1885; A4663

== ENCOUNTER 2021-03-20 17:29 | Emergency (ER) | payer MEDICAID ==
[~2021-03-20] VITALS: Ht 167.6 cm; Wt 65.8 kg
[2021-03-20] MEDS ORDERED: ACETAMINOPHEN 325 MG TABLET PO ONE (18:00)
[2021-03-20] MEDS ORDERED: LIDOCAINE 5% PATCH TD ONE ×2 (18:00→18:06)
[2021-03-20] MEDS ORDERED: ACETAMINOPHEN ES 500 MG TABLET ONE (18:06)
--- NOTE | 2021-03-20 18:06 | NUR ---
Post void Residual: 12mL denies pain, denies urgency
[2021-03-20 18:20] LABS: *AMPHETAMINE, URINE NEGATIVE (NEGATIVE); *CANNABINOID, URINE NEGATIVE (NEGATIVE); *COCCAINE, URINE NEGATIVE (NEGATIVE); *OPIATE, URINE NEGATIVE (NEGATIVE); *PHENCYCLIDINE SCREEN,URINE NEGATIVE (NEGATIVE)
[2021-03-20] MEDS ORDERED: HYDR-4209 PO (18:21)
[2021-03-20] MEDS ORDERED: BACL10TA PO (18:21)
[2021-03-20] MEDS ORDERED: LIDO30AD10 TD (18:21)
[2021-03-20 18:32] VITALS: BP 140/75
--- NOTE | 2021-03-20 18:32 | NUR ---
Patient discharged to home in stable condition. Written and verbal after care instructions given. Patient verbalizes understanding of instructions. Stressed follow up or return to ER for worsening s/s.
== END 2021-03-20 18:33 | disposition home or self-care (01) ==
LOC: ER 17:29
DX: M54.41 Lumbago with sciatica, right side (principal); G89.29 Other chronic pain; Z90.49 Acquired absence of other specified parts of digestive tract; Z88.1 Allergy status to other antibiotic agents; Z91.048 Other nonmedicinal substance allergy status; I10 Essential (primary) hypertension; F32.9 Major depressive disorder, single episode, unspecified; F41.9 Anxiety disorder, unspecified; J45.909 Unspecified asthma, uncomplicated; Z79.899 Other long term (current) drug therapy
CPT/HCPCS: A4663; A9150

== ENCOUNTER 2021-03-24 15:21 | Emergency (ER) | payer MEDICAID ==
[~2021-03-24] VITALS: Ht 165.1 cm; Wt 64.9 kg
[~2021-03-24 15:21] MED LIST changes: +BACL10TA PO; +HYDR-4209 PO; +LIDO30AD10 TD
--- NOTE | 2021-03-24 15:37 | NUR ---
patient being seen by Dr. Govea at this time for back pain.
[2021-03-24] MEDS ORDERED: LIDOCAINE 5% PATCH TD ONE ×2 (15:45→15:51)
[2021-03-24] MEDS ORDERED: OXYCODONE/APAP 5-325 MG TABLET PO ONE (15:45)
[2021-03-24] MEDS ORDERED: METH4TAB21 PO (15:51)
[2021-03-24] MEDS ORDERED: OXYCODONE/APAP 5-325 MG TABLET ONE (15:51)
[2021-03-24] MEDS ORDERED: OXYC-128 PO (15:51)
--- NOTE | 2021-03-24 16:00 | NUR ---
patient given discharge instructions withprescriptions and instructed is unable to drive while on these medications or operate machinery
== END 2021-03-24 16:13 | disposition home or self-care (01) ==
LOC: ER 15:21
DX: M54.41 Lumbago with sciatica, right side (principal); Z88.1 Allergy status to other antibiotic agents; Z91.048 Other nonmedicinal substance allergy status; Z90.49 Acquired absence of other specified parts of digestive tract; I10 Essential (primary) hypertension; F32.9 Major depressive disorder, single episode, unspecified; J45.909 Unspecified asthma, uncomplicated
CPT/HCPCS: A4663

== ENCOUNTER 2021-04-20 11:02 | Emergency (ER) | payer MEDICAID ==
[~2021-04-20] VITALS: Ht 167.6 cm; Wt 65.8 kg
[~2021-04-20 11:02] MED LIST changes: +METH4TAB21 PO; +OXYC-128 PO
[2021-04-20] MEDS ORDERED: OXYCODONE/APAP 5-325 MG TABLET PO ONE (11:30)
--- NOTE | 2021-04-20 11:32 | NUR ---
DR PULIDO EVALUATED THE PT. PT WAS D/C'd TO HOME. D/C INSTRUCTIONS GIVEN TO THE PT BY DR PULIDO.
[2021-04-20] MEDS ORDERED: OXYCODONE/APAP 5-325 MG TABLET ONE (11:35)
[2021-04-20 11:40] VITALS: BP 131/75
== END 2021-04-20 11:41 | disposition home or self-care (01) ==
LOC: ER 11:04
DX: M51.17 Intervertebral disc disorders with radiculopathy, lumbosacral region (principal); I10 Essential (primary) hypertension; Z90.49 Acquired absence of other specified parts of digestive tract; J45.909 Unspecified asthma, uncomplicated; F32.9 Major depressive disorder, single episode, unspecified; Z79.899 Other long term (current) drug therapy
CPT/HCPCS: A4663

== ENCOUNTER 2021-05-11 12:21 | Emergency (ER) | payer MEDICAID ==
[~2021-05-11] VITALS: Ht 167.6 cm; Wt 65.8 kg
--- NOTE | 2021-05-11 12:33 | NUR ---
Dr Barahona at the bedside for MSE.
[2021-05-11] MEDS ORDERED: OXYCODONE/APAP 5-325 MG TABLET PO ONE (12:45)
[2021-05-11] MEDS ORDERED: KETOROLAC TROMETHAMINE 60 MG INJ IM ONE ×2 (12:45→12:48)
[2021-05-11] MEDS ORDERED: OXYCODONE/APAP 5-325 MG TABLET ONE (12:48)
--- NOTE | 2021-05-11 12:55 | NUR ---
Patient discharged to home in stable condition. Written and verbal after care instructions given. Patient verbalizes understanding of instructions. Stressed follow up or return to ER for worsening s/s. Pt walked out of ER w/ steady gait.
[2021-05-11 12:56] VITALS: BP 153/96
== END 2021-05-11 12:56 | disposition home or self-care (01) ==
LOC: ER 12:21
DX: G89.29 Other chronic pain (principal); M54.41 Lumbago with sciatica, right side; I10 Essential (primary) hypertension; J45.909 Unspecified asthma, uncomplicated; Z90.49 Acquired absence of other specified parts of digestive tract; Z88.1 Allergy status to other antibiotic agents; Z88.8 Allergy status to other drugs, medicaments and biological substances; F32.9 Major depressive disorder, single episode, unspecified; F41.9 Anxiety disorder, unspecified; Z79.899 Other long term (current) drug therapy
CPT/HCPCS: 96372; 99283; J1885; A4663

== ENCOUNTER 2021-06-08 12:31 | Emergency (ER) | payer MEDICAID ==
[~2021-06-08] VITALS: Ht 167.6 cm; Wt 63.5 kg
--- NOTE | 2021-06-08 12:42 | NUR ---
Clean-catch urine specimen was requested but patient gave urine mixed with solid-formed stool instead.
--- NOTE | 2021-06-08 12:46 | NUR ---
MD@[email or web address], medical screening exam in progress
--- NOTE | 2021-06-08 12:51 | NUR ---
Another clean catch urine was requested from patient with repeat teachings and emphasis on NOT giving a sample of urine mixed with feces. Patient verbalized understanding & compliance.
[2021-06-08] MEDS ORDERED: ONDANSETRON 4 MG/2 ML VIAL IV ONE (13:00)
[2021-06-08] MEDS ORDERED: MORPHINE SULFATE 2 MG/1 ML DISP.SYRIN IV ONE (13:00)
[2021-06-08 13:06] LABS: *BILIRUBIN,URIN NEGATIVE (NEGATIVE); *BLOOD, URINE NEGATIVE (NEGATIVE); *CLARITY,URINE CLEAR (CLEAR); *COLOR,URINE YELLOW (YELLOW); *KETONES,URINE NEGATIVE (NEGATIVE); *UROBILINOGEN,URINE 0.2 E.U./dl (NORMAL); LEUKOCYTE ESTERASE ,URINE NEGATIVE (NEGATIVE); NITRITE, URINE NEGATIVE (NEGATIVE); PH,URINE 8.5 (5.0-8.0); UGLUCOSE NEGATIVE (NEGATIVE)
[2021-06-08] MEDS ORDERED: ONDANSETRON 4 MG/2 ML VIAL ONE (13:07)
[2021-06-08] MEDS ORDERED: MORPHINE SULFATE 4 MG/1 ML DISP.SYRIN ONE (13:07)
[2021-06-08] MEDS ORDERED: diphenhydrAMINE 50 MG/1 ML VIAL IV ONE (13:15)
[2021-06-08] MEDS ORDERED: diphenhydrAMINE 50 MG/1 ML VIAL ONE (13:25)
[2021-06-08 13:26] LABS: HEMATOCRIT 39.4 % (31.2-41.9); MEAN CORPUSCULAR HEMOGLOBIN 32.2 uug (24.7-32.8); MEAN CORPUSCULAR VOLUME 95.9 fL (75.5-95.3); PLATELET COUNT (AUTO) 244 K/uL (179-408)
--- NOTE | 2021-06-08 13:39 | NUR ---
"Can I have some ice chips and more pain medicines?" per patient's verbalization. notified. "OK to have ice chips." per Dr Hammer. No other orders received@this time.
[2021-06-08 13:41] LABS: BILIRUBIN,DIRECT 0.1 mg/dL (0.0-0.2); BILIRUBIN,TOTAL 0.3 mg/dL (0.2-1.0); CREATININE 0.9 mg/dL (0.6-1.3); POTASSIUM 4.2 mmol/L (3.5-5.1); TOTAL PROTEIN, SERUM 6.6 g/dL (6.4-8.2)
--- NOTE | 2021-06-08 13:46 | NUR ---
There is a 2-hour delay for CT scan, MD & patient are aware.
--- NOTE | 2021-06-08 13:56 | NUR ---
Lights dimmed since arrival per patient's request with comfort & safety measures maintained.
[2021-06-08] MEDS ORDERED: IV NORMAL SALINE 500 ML BAG IV ONE (14:00)
--- NOTE | 2021-06-08 14:04 | NUR ---
Patient is resting comfortably on gurney with semi-zamora's position while using her personal electronic device, NAD.
--- NOTE | 2021-06-08 15:00 | NUR ---
Extra pillows & warm blankets provided, still for CT scan.
[2021-06-08] MEDS ORDERED: MAG HYDROX/AL HYDROX/SIMETH 30 ML LIQUID UDC PO ONE (15:30)
[2021-06-08] MEDS ORDERED: MAG HYDROX/AL HYDROX/SIMETH 30 ML LIQUID UDC ONE (15:34)
--- NOTE | 2021-06-08 16:48 | NUR ---
Patient wanted to leave, [email or web address]. IV removed. Catheter intact and site benign. Pressure and 4x4 gauze applied to site. No bleeding noted.
--- NOTE | 2021-06-08 16:58 | NUR ---
Patient was discharged to home in stable condition with brisk steady gait. Verbal after care instructions given by MD himself. Patient verbalized understanding and compliance of instructions. Stressed follow up primary doctor and container coordinator or return to ER for worsening s/s.
== END 2021-06-08 16:58 | disposition home or self-care (01) ==
LOC: ER 12:32
DX: R10.9 Unspecified abdominal pain (principal); Z90.49 Acquired absence of other specified parts of digestive tract; I10 Essential (primary) hypertension; J45.909 Unspecified asthma, uncomplicated; F41.9 Anxiety disorder, unspecified; F32.9 Major depressive disorder, single episode, unspecified
CPT/HCPCS: 36415; 80048; 80076; 81003; 85025; 96361; 96374; 96375; 99284; J1200; J2270; J2405; U0003

== ENCOUNTER → 2021-06-11 | Emergency (ER) | payer MEDICAID ==
[~2021-06-11] VITALS: Ht 167.6 cm; Wt 63.5 kg
[~2021-06-11] MED LIST changes: +AZIT500T PO; +DICY10CA13 PO; +DICY20TA11 PO; +HYDR-501 PO; +HYDROMORPHONE 1 MG/1 ML DISP.SYRIN ONE; +IOHEXOL 300MG/ML 100 ML INFUS..BTL ONE; +IV NORMAL SALINE 1000 ML BAG IV ONE; +IV NORMAL SALINE 250 ML IV ONE; +KETOROLAC TROMETHAMINE 15 MG INJ IVP ONE; +KETOROLAC TROMETHAMINE 15 MG INJ ONE; +ONDA4TAB5 PO; +ONDANSETRON 4 MG/2 ML VIAL ONE; +OXYCODONE/APAP 5-325 MG TABLET ONE; +PROM118S5 PO; +SWABABLE VALVE TRANSFER SET EA MC ONE; +diphenhydrAMINE 50 MG/1 ML VIAL ONE
[2021-06-11 15:00] LABS: *BILIRUBIN,URIN NEGATIVE (NEGATIVE); *CLARITY,URINE CLEAR (CLEAR); *COLOR,URINE YELLOW (YELLOW); *KETONES,URINE NEGATIVE (NEGATIVE); *UROBILINOGEN,URINE 0.2 E.U./dl (NORMAL); LEUKOCYTE ESTERASE ,URINE TRACE (NEGATIVE); NITRITE, URINE NEGATIVE (NEGATIVE); UGLUCOSE NEGATIVE (NEGATIVE)
[2021-06-11 15:03] LABS: *BLOOD, URINE TRACE (NEGATIVE)
[2021-06-11 15:07] LABS: *URINE HCG, QUAL NEGATIVE (NEGATIVE)
[2021-06-11 15:11] LABS: BACTERIA,URINE NONE SEEN /HPF (NONE SEEN); MUCUS,URINE FEW /LPF (0-FEW); RBC,URINE 0-3 /HPF (0-3); SQUAMOUS EPITHELIAL CELL,UR FEW /HPF (NONE SEEN); URINE AMORPHOUS URATE FEW /HPF; WBC,URINE 0-3 /HPF (0-3)
[2021-06-11 15:12] LABS: HEMATOCRIT 40.2 % (31.2-41.9); MEAN CORPUSCULAR HEMOGLOBIN 32.8 uug (24.7-32.8); MEAN CORPUSCULAR VOLUME 96.1 fL (75.5-95.3); PLATELET COUNT (AUTO) 256 K/uL (179-408)
[2021-06-11 15:16] LABS: POTASSIUM 3.9 mmol/L (3.5-5.1)
[2021-06-11 15:22] LABS: BILIRUBIN,DIRECT 0.1 mg/dL (0.0-0.2); BILIRUBIN,TOTAL 0.1 mg/dL (0.2-1.0)
== END | disposition home or self-care (01) ==
LOC: ER 14:40
DX: G89.29 Other chronic pain (principal); R10.9 Unspecified abdominal pain; Z88.1 Allergy status to other antibiotic agents; Z88.8 Allergy status to other drugs, medicaments and biological substances; Z90.49 Acquired absence of other specified parts of digestive tract; I10 Essential (primary) hypertension; J45.909 Unspecified asthma, uncomplicated; F32.9 Major depressive disorder, single episode, unspecified; F41.9 Anxiety disorder, unspecified; Z79.899 Other long term (current) drug therapy
CPT/HCPCS: 36415; 74177; 80048; 80076; 81001; 83690; 84484; 84703; 85025; 96361; 96374; 99285; J1885; Q9967; 70030-TC; A4663; J7050

== ENCOUNTER 2021-06-17 22:11 | Emergency (ER) | payer MEDICAID ==
[~2021-06-17] VITALS: Ht 167.6 cm; Wt 64.9 kg
[~2021-06-17 22:11] MED LIST changes: -AZIT500T PO; -DICY20TA11 PO; -HYDR-501 PO; -HYDROMORPHONE 1 MG/1 ML DISP.SYRIN ONE; -IOHEXOL 300MG/ML 100 ML INFUS..BTL ONE; -IV NORMAL SALINE 1000 ML BAG IV ONE; -IV NORMAL SALINE 250 ML IV ONE; -KETOROLAC TROMETHAMINE 15 MG INJ IVP ONE; -KETOROLAC TROMETHAMINE 15 MG INJ ONE; -ONDA4TAB5 PO; -ONDANSETRON 4 MG/2 ML VIAL ONE; -OXYCODONE/APAP 5-325 MG TABLET ONE; -PROM118S5 PO; -SWABABLE VALVE TRANSFER SET EA MC ONE; -diphenhydrAMINE 50 MG/1 ML VIAL ONE
--- NOTE | 2021-06-17 22:30 | NUR ---
Pt ambulated to ER with c/o abd pain with constipation x4 days, with nausea but no vomiting. A/O x4, no SOB or labored breathing, afebrile. Denies CP/pressure. Clear speech, complete sentences.
--- NOTE | 2021-06-17 22:45 | NUR ---
Dr. Hurley at bedside, MSE in progress.
[2021-06-17 23:04] LABS: *BILIRUBIN,URIN NEGATIVE (NEGATIVE); *CLARITY,URINE CLEAR (CLEAR); *KETONES,URINE NEGATIVE (NEGATIVE); *UROBILINOGEN,URINE 0.2 E.U./dl (NORMAL); LEUKOCYTE ESTERASE ,URINE NEGATIVE (NEGATIVE); NITRITE, URINE NEGATIVE (NEGATIVE); PH,URINE 6.5 (5.0-8.0); UGLUCOSE NEGATIVE (NEGATIVE)
[2021-06-17 23:05] LABS: *BLOOD, URINE TRACE (NEGATIVE); *COLOR,URINE STRAW (YELLOW)
[2021-06-17 23:12] LABS: BACTERIA,URINE FEW /HPF (NONE SEEN); SQUAMOUS EPITHELIAL CELL,UR NONE SEEN /HPF (NONE SEEN); WBC,URINE 0-3 /HPF (0-3)
[2021-06-18] MEDS ORDERED: IV NORMAL SALINE 1000 ML BAG IV ONE (00:30)
[2021-06-18] MEDS ORDERED: ONDANSETRON 4 MG/2 ML VIAL IV ONE ×2 (00:30→04:00)
[2021-06-18] MEDS ORDERED: HYDROMORPHONE 1 MG/1 ML DISP.SYRIN IV ONE ×2 (00:30→03:00)
[2021-06-18 00:49] LABS: HEMATOCRIT 38.7 % (31.2-41.9); MEAN CORPUSCULAR HEMOGLOBIN 32.4 uug (24.7-32.8); PLATELET COUNT (AUTO) 215 K/uL (179-408)
[2021-06-18] MEDS ORDERED: ONDANSETRON 4 MG/2 ML VIAL ONE (00:51)
[2021-06-18] MEDS ORDERED: HYDROMORPHONE 1 MG/1 ML DISP.SYRIN ONE (00:51)
[2021-06-18 00:57] LABS: CARBON DIOXIDE 27 mmol/L (21-32); CHLORIDE 102 mmol/L (98-107); CREATININE 0.8 mg/dL (0.6-1.3); GLUCOSE 88 mg/dL (74-106); POTASSIUM 3.5 mmol/L (3.5-5.1); UREA NITROGEN, BLOOD 15 mg/dL (7-18)
--- NOTE | 2021-06-18 01:02 | NUR ---
Pt resting in bed comfortably, VSS.
[2021-06-18 01:11] LABS: ALANINE AMINOTRANSFERASE 29 U/L (14-59); ALKALINE PHOSPHATASE 91 U/L (50-136); ASPARTATE AMINOTRANSFERASE 24 U/L (15-37); BILIRUBIN,DIRECT < 0.1 mg/dL (0.0-0.2); BILIRUBIN,TOTAL 0.1 mg/dL (0.2-1.0); LIPASE 908 U/L (73-393); TOTAL PROTEIN, SERUM 6.9 g/dL (6.4-8.2)
[2021-06-18 02:25] LABS: ETHANOL < 3 MG/DL (0-0)
[2021-06-18] MEDS ORDERED: DIATR MEGLU/DIATRIZOATE SODIUM 120 ML BOTTLE PO ONE (02:45)
[2021-06-18] MEDS ORDERED: SWABABLE VALVE TRANSFER SET EA MC ONE (02:56)
[2021-06-18] MEDS ORDERED: DIATR MEGLU/DIATRIZOATE SODIUM 30 ML BOTTLE ONE (02:56)
[2021-06-18] MEDS ORDERED: IV NORMAL SALINE 250 ML IV ONE (02:56)
[2021-06-18] MEDS ORDERED: IOHEXOL 300MG/ML 100 ML INFUS..BTL ONE (02:56)
[2021-06-18] MEDS ORDERED: diphenhydrAMINE 50 MG/1 ML VIAL IV ONE (03:00)
--- NOTE | 2021-06-18 03:18 | NUR ---
PT AMBULATED TO RESTROOM WITH STEADY GAIT. NOW RESTING COMFORTABLY IN BED NOTED TO BE USING HER PHONE. VSS. BED IN LOWEST POSITION FOR SAFETY PRECAUTIONS.
--- NOTE | 2021-06-18 04:57 | NUR ---
PT TAKEN DOWN FOR CT.
--- NOTE | 2021-06-18 05:14 | NUR ---
PT RETURNED FROM CT, STABLE CONDITION.
--- NOTE | 2021-06-18 06:08 | NUR ---
Patient is resting comfortably in bed with eyes closed. Breathing even and unlabored. VSS.
--- NOTE | 2021-06-18 06:42 | NUR ---
Pt ambulated to bathroom, steady gait. VSS. Denies any pain/discomfort. Breathing even and unlabored.
--- NOTE | 2021-06-18 07:31 | NUR ---
PT DECIDED TO LEAVE HOSPITAL ER AMA OF DR ALFREDO. DR ALFREDO EXPLAINED ALL RISKS OF LEAVING AMA TO THE PT. PT VERBALIZED FULL UNDERSTANDING OF EXPLANATIONS OF DR ALFREDO. PT SIGNED AMA FORM AND LEFT HOSPITAL BY TAXI.
[2021-06-18 07:34] VITALS: BP 131/69
== END 2021-06-18 07:35 | disposition left against medical advice (07) ==
LOC: ER 22:12
DX: K85.90 Acute pancreatitis without necrosis or infection, unspecified (principal); Z53.29 Procedure and treatment not carried out because of patient's decision for other reasons; Z20.822 Contact with and (suspected) exposure to COVID-19; K83.8 Other specified diseases of biliary tract; K56.7 Ileus, unspecified; Z90.49 Acquired absence of other specified parts of digestive tract; Z88.1 Allergy status to other antibiotic agents; J45.909 Unspecified asthma, uncomplicated; E07.9 Disorder of thyroid, unspecified; F10.10 Alcohol abuse, uncomplicated; Y90.0 Blood alcohol level of less than 20 mg/100 ml; I10 Essential (primary) hypertension; F17.200 Nicotine dependence, unspecified, uncomplicated; G89.29 Other chronic pain; M54.2 Cervicalgia; M54.9 Dorsalgia, unspecified; Z79.899 Other long term (current) drug therapy; F32.9 Major depressive disorder, single episode, unspecified
CPT/HCPCS: 36415; 74021; 74177; 80048; 80076; 80320; 81001; 83690; 84484; 85025; 87086; 87426; 93005; 96361; 96374; 96375; 96376; 99285; J1170 ×2; J1200; J2405 ×2; Q9963; Q9967; 70030-TC; G0480; J7030; J7050

== ENCOUNTER 2021-07-03 19:59 | Emergency (ER) | payer MEDICAID ==
[~2021-07-03] VITALS: Ht 167.6 cm; Wt 65.3 kg
--- NOTE | 2021-07-03 20:55 | NUR ---
Dr. Mann at bedside for MSE.
[2021-07-03] MEDS ORDERED: OXYCODONE/APAP 5-325 MG TABLET ONE (21:13)
[2021-07-03] MEDS ORDERED: OXYCODONE/APAP 5-325 MG TABLET PO ONE (21:15)
[2021-07-03 21:19] LABS: HEMATOCRIT 38.1 % (31.2-41.9); MEAN CORPUSCULAR HEMOGLOBIN 32.9 uug (24.7-32.8); MEAN CORPUSCULAR VOLUME 95.5 fL (75.5-95.3); PLATELET COUNT (AUTO) 233 K/uL (179-408)
[2021-07-03 21:31] LABS: CARBON DIOXIDE 26 mmol/L (21-32); CHLORIDE 101 mmol/L (98-107); CREATININE 0.9 mg/dL (0.6-1.3); GLUCOSE 96 mg/dL (74-106); POTASSIUM 4.4 mmol/L (3.5-5.1); UREA NITROGEN, BLOOD 12 mg/dL (7-18)
[2021-07-03 21:37] LABS: ALANINE AMINOTRANSFERASE 50 U/L (14-59); ALKALINE PHOSPHATASE 106 U/L (50-136); ASPARTATE AMINOTRANSFERASE 17 U/L (15-37); BILIRUBIN,DIRECT < 0.1 mg/dL (0.0-0.2); BILIRUBIN,TOTAL 0.2 mg/dL (0.2-1.0); LIPASE 220 U/L (73-393); TOTAL PROTEIN, SERUM 6.8 g/dL (6.4-8.2)
--- NOTE | 2021-07-03 21:49 | NUR ---
NISHI POLO FROM LAB CALLED FOR COVID POSITIVE RESULTS. DR. RENTERIA AWARE. PT MADE AWARE AND VERBALIZED UNDERSTANDING.
[2021-07-03] MEDS ORDERED: ONDA4TAB5 PO (22:03)
[2021-07-03] MEDS ORDERED: DICY20TA11 PO (22:03)
[2021-07-03] MEDS ORDERED: HYDR-501 PO (22:03)
--- NOTE | 2021-07-03 22:11 | NUR ---
Patient discharged to home in stable condition. Written and verbal after care instructions given. Patient verbalizes understanding of instructions. Stressed follow up or return to ER for worsening s/s. Patient out of ER with steady gait, no acute signs of distress, VSS, all belongings taken, provided with copies of lab and covid results, instructed not to drive, to be driven home via uber.
[2021-07-03 22:39] VITALS: BP 111/62
== END 2021-07-03 22:39 | disposition home or self-care (01) ==
LOC: ER 19:59
DX: U07.1 COVID-19 (principal); F17.210 Nicotine dependence, cigarettes, uncomplicated; I10 Essential (primary) hypertension; J45.909 Unspecified asthma, uncomplicated; F32.9 Major depressive disorder, single episode, unspecified; F41.9 Anxiety disorder, unspecified; F10.21 Alcohol dependence, in remission; G89.4 Chronic pain syndrome; Z79.899 Other long term (current) drug therapy
CPT/HCPCS: 36415; 83690; 85025; 87400; A4663

== ENCOUNTER 2021-07-10 20:48 | Emergency (ER) | payer MEDICAID ==
[~2021-07-10] VITALS: Ht 167.6 cm; Wt 64.9 kg
[~2021-07-10 20:48] MED LIST changes: +DICY20TA11 PO; +HYDR-501 PO; +ONDA4TAB5 PO
[2021-07-10 21:44] LABS: HEMATOCRIT 39.5 % (31.2-41.9); MEAN CORPUSCULAR HEMOGLOBIN 32.3 uug (24.7-32.8); MEAN CORPUSCULAR VOLUME 94.6 fL (75.5-95.3); PLATELET COUNT (AUTO) 190 K/uL (179-408)
[2021-07-10 22:08] LABS: BILIRUBIN,DIRECT 0.1 mg/dL (0.0-0.2); BILIRUBIN,TOTAL 0.2 mg/dL (0.2-1.0); TOTAL PROTEIN, SERUM 7.2 g/dL (6.4-8.2)
--- NOTE | 2021-07-10 22:22 | NUR ---
A,A,oriented to time,place,person. Reports dry cough intermitent. Covid swab antigen as directed. Patient requested to swab self.Done as requested.Test to lab 2215. Comfort requests x 2.
[2021-07-10] MEDS ORDERED: OXYCODONE/APAP 5-325 MG TABLET PO ONE (22:30)
[2021-07-10] MEDS ORDERED: IOHEXOL 350 100 ML INFUS..BTL ONE (22:58)
[2021-07-10] MEDS ORDERED: IV NORMAL SALINE 250 ML IV ONE (22:58)
[2021-07-10] MEDS ORDERED: SWABABLE VALVE TRANSFER SET EA MC ONE (22:58)
[2021-07-10] MEDS ORDERED: OXYCODONE/APAP 5-325 MG TABLET ONE (23:05)
--- NOTE | 2021-07-10 23:21 | NUR ---
Medicated for back pain 07/09, consented for CT with contrast. #20 angio SL RAC dressing dry intact. to CT via W/C.
--- NOTE | 2021-07-10 23:55 | NUR ---
Kaylan tao in ED - 07/10/21 at 2359 by [email or web address] Return from CT pain moderate. Dr Hurley informed.Waiting for CT rresults.
--- NOTE | 2021-07-10 23:59 | NUR ---
Return from CT pain moderate. Dr Hurley informed.Waiting for CT results.
--- NOTE | 2021-07-11 00:16 | NUR ---
Comfort x 2 BP 104/60, P 78, resp 20 SAO2 99 5 RA mask.
[2021-07-11] MEDS ORDERED: OXYCODONE/APAP 5-325 MG TABLET PO ONE (01:15)
[2021-07-11] MEDS ORDERED: AZIT500T PO (01:20)
[2021-07-11] MEDS ORDERED: PROM118S5 PO (01:20)
[2021-07-11] MEDS ORDERED: OXYC-128 PO (01:20)
[2021-07-11 01:47] VITALS: BP 140/88
== END 2021-07-11 01:30 | disposition home or self-care (01) ==
LOC: ER 20:50
DX: U07.1 COVID-19 (principal); R91.1 Solitary pulmonary nodule; I10 Essential (primary) hypertension; R10.30 Lower abdominal pain, unspecified; J45.909 Unspecified asthma, uncomplicated; Z87.891 Personal history of nicotine dependence; Z90.49 Acquired absence of other specified parts of digestive tract; G89.29 Other chronic pain; M54.12 Radiculopathy, cervical region; Z88.1 Allergy status to other antibiotic agents; Z88.8 Allergy status to other drugs, medicaments and biological substances
CPT/HCPCS: 36415; 71045; 71275; 80048; 80076; 83605; 83880; 84484; 85025; 85379; 87040 ×2; 87426; 93005; 99285; Q9967; 70030-TC; A4663; J7050

== ENCOUNTER 2021-07-16 20:58 | Emergency (ER) | payer MEDICAID ==
[~2021-07-16] VITALS: Ht 167.6 cm; Wt 64.9 kg
[~2021-07-16 20:58] MED LIST changes: +AZIT500T PO; +PROM118S5 PO
--- NOTE | 2021-07-16 21:25 | NUR ---
Pt arrive at the ER with c/o cough, chestwall pain, backpain, and sore throat x 2 weeks since testing positive for covid on July 03, 2021. Pt wants to be checked if still covid+.
--- NOTE | 2021-07-16 21:45 | NUR ---
Dr. Mann at bedside for MSE.
[2021-07-16] MEDS ORDERED: GUAIFENESIN/DEXTROMETHORPHAN 5 ML UDC PO ONE (22:00)
[2021-07-16] MEDS ORDERED: predniSONE 20 MG TABLET PO ONE (22:00)
[2021-07-16] MEDS ORDERED: PRED20TA PO (22:24)
[2021-07-16] MEDS ORDERED: GUAI237L83 PO (22:24)
--- NOTE | 2021-07-16 22:30 | NUR ---
Patient discharged to home in stable condition. Written and verbal after care instructions given. Patient verbalizes understanding of instructions. Stressed follow up or return to ER for worsening s/s. All belongings with patient.
[2021-07-16 23:06] VITALS: BP 130/88
== END 2021-07-16 22:30 | disposition home or self-care (01) ==
LOC: ER 21:04
DX: U07.1 COVID-19 (principal); J40 Bronchitis, not specified as acute or chronic; Z88.1 Allergy status to other antibiotic agents; G89.4 Chronic pain syndrome; Z91.048 Other nonmedicinal substance allergy status; Z87.891 Personal history of nicotine dependence
CPT/HCPCS: 87426; 99283; J7512; A4663

== ENCOUNTER 2021-09-24 16:14 | Emergency (ER) | payer MEDICAID ==
[~2021-09-24] VITALS: Ht 167.6 cm; Wt 65.3 kg
[~2021-09-24 16:14] MED LIST changes: +GUAI237L83 PO; +PRED20TA PO
[2021-09-24] MEDS ORDERED: HYDROCODONE/APAP 10-325 MG TABLET PO ONE (17:00)
[2021-09-24] MEDS ORDERED: KETOROLAC TROMETHAMINE 30 MG INJ IM ONE (17:00)
--- NOTE | 2021-09-24 17:08 | NUR ---
Pt states not driving today. States PS 8/10, in NAD at this time. Will re-assess pain.
[2021-09-24] MEDS ORDERED: KETOROLAC TROMETHAMINE 30 MG INJ ONE (17:09)
[2021-09-24] MEDS ORDERED: HYDROCODONE/APAP 10-325 MG TABLET ONE (17:10)
[2021-09-24] MEDS ORDERED: OXYC5CAP18 PO (17:34)
--- NOTE | 2021-09-24 17:39 | NUR ---
Pt states improvement in PS without adverse event from medication. Patient discharged to home in stable condition. Written and verbal after care instructions given. Patient verbalizes understanding of instructions. Stressed follow up or return to ER for worsening s/s.
[2021-09-24 17:40] VITALS: BP 115/91
== END 2021-09-24 17:41 | disposition home or self-care (01) ==
LOC: ER 16:19
DX: M54.41 Lumbago with sciatica, right side (principal); G89.29 Other chronic pain; Z87.891 Personal history of nicotine dependence; Z90.49 Acquired absence of other specified parts of digestive tract; J45.909 Unspecified asthma, uncomplicated; F41.9 Anxiety disorder, unspecified; F32.A Depression, unspecified; Z86.16 Personal history of COVID-19; G47.9 Sleep disorder, unspecified; Z79.899 Other long term (current) drug therapy; Z88.1 Allergy status to other antibiotic agents; Z91.048 Other nonmedicinal substance allergy status
CPT/HCPCS: 96372; 99283; J1885; A4663

== ENCOUNTER 2021-09-27 13:28 | Emergency (ER) | payer MEDICAID ==
[~2021-09-27] VITALS: Ht 170.2 cm; Wt 66.2 kg
[~2021-09-27 13:28] MED LIST changes: +OXYC5CAP18 PO
[2021-09-27] MEDS ORDERED: KETOROLAC TROMETHAMINE 30 MG INJ IM ONE (14:30)
[2021-09-27] MEDS ORDERED: HYDROCODONE/APAP 10-325 MG TABLET PO ONE (14:30)
[2021-09-27] MEDS ORDERED: diphenhydrAMINE 25 MG CAP PO ONE ×2 (14:30→14:40)
[2021-09-27] MEDS ORDERED: HYDROCODONE/APAP 10-325 MG TABLET ONE (14:36)
[2021-09-27] MEDS ORDERED: KETOROLAC TROMETHAMINE 30 MG INJ ONE (14:36)
[2021-09-27] MEDS ORDERED: HYDR453.3 TP (14:41)
[2021-09-27] MEDS ORDERED: PRED20TA PO (21:59)
== END 2021-09-27 14:57 | disposition home or self-care (01) ==
LOC: ER 13:28
DX: R21 Rash and other nonspecific skin eruption (principal); G89.29 Other chronic pain; M54.9 Dorsalgia, unspecified; Z90.49 Acquired absence of other specified parts of digestive tract; J45.909 Unspecified asthma, uncomplicated; Z87.891 Personal history of nicotine dependence
CPT/HCPCS: 96372; 99283; J1885; Q0163; A4663

== ENCOUNTER 2021-09-27 21:09 | Emergency (ER) | payer MEDICAID ==
[~2021-09-27] VITALS: Ht 170.2 cm; Wt 66.2 kg
[~2021-09-27 21:09] MED LIST changes: +HYDR453.3 TP
[2021-09-27] MEDS ORDERED: PRED20TA PO (21:59)
[2021-09-27] MEDS ORDERED: predniSONE 20 MG TABLET PO ONE (22:00)
[2021-09-27] MEDS ORDERED: predniSONE 20 MG TABLET ONE (22:09)
[2021-09-27 22:21] VITALS: BP 122/80
== END 2021-09-27 22:22 | disposition home or self-care (01) ==
LOC: ER 21:10
DX: R21 Rash and other nonspecific skin eruption (principal); Z87.891 Personal history of nicotine dependence; G89.4 Chronic pain syndrome; Z90.49 Acquired absence of other specified parts of digestive tract; Z88.1 Allergy status to other antibiotic agents; Z91.048 Other nonmedicinal substance allergy status
CPT/HCPCS: 99283; J7512; A4663

== ENCOUNTER 2021-10-22 16:00 | Emergency (ER) | payer MEDICAID ==
[~2021-10-22] VITALS: Ht 167.6 cm; Wt 65.3 kg
[2021-10-22] MEDS ORDERED: ACETAMINOPHEN 325 MG TABLET PO ONE (16:30)
[2021-10-22] MEDS ORDERED: KETOROLAC TROMETHAMINE 30 MG INJ IM ONE (16:30)
[2021-10-22 16:44] LABS: *BILIRUBIN,URIN NEGATIVE (NEGATIVE); *BLOOD, URINE NEGATIVE (NEGATIVE); *CLARITY,URINE CLEAR (CLEAR); *COLOR,URINE YELLOW (YELLOW); *KETONES,URINE NEGATIVE (NEGATIVE); *UROBILINOGEN,URINE 0.2 E.U./dl (NORMAL); LEUKOCYTE ESTERASE ,URINE NEGATIVE (NEGATIVE); NITRITE, URINE NEGATIVE (NEGATIVE); PH,URINE 5.5 (5.0-8.0); UGLUCOSE NEGATIVE (NEGATIVE)
--- NOTE | 2021-10-22 16:52 | NUR ---
Patient accidentally dropped one Tylenol pill tot he floor. The pill was wasted and replaced accordingly.
[2021-10-22] MEDS ORDERED: KETOROLAC TROMETHAMINE 30 MG INJ ONE (16:54)
[2021-10-22] MEDS ORDERED: ACETAMINOPHEN ES 500 MG TABLET ONE ×2 (16:54→16:58)
[2021-10-22 16:58] LABS: HEMATOCRIT 39.3 % (31.2-41.9); MEAN CORPUSCULAR HEMOGLOBIN 33.3 uug (24.7-32.8); MEAN CORPUSCULAR VOLUME 97.7 fL (75.5-95.3); PLATELET COUNT (AUTO) 292 K/uL (179-408)
[2021-10-22 17:05] LABS: CREATININE 1.1 mg/dL (0.6-1.3); POTASSIUM 3.7 mmol/L (3.5-5.1)
[2021-10-22 17:12] LABS: BILIRUBIN,TOTAL 0.3 mg/dL (0.2-1.0); TOTAL PROTEIN, SERUM 7.5 g/dL (6.4-8.2)
--- NOTE | 2021-10-22 17:22 | NUR ---
Patient is resting comfortably on gurney while using her personal electronic device, NAD. Patient does not want to go home despite normal findings, MD notified.
--- NOTE | 2021-10-22 17:29 | NUR ---
Patient discharged to home in stable condition with brisk steady gait. Written and verbal after care instructions given to patient. Patient verbalized understanding and compliance of instructions. Stressed follow up with primary doctor or return to ER for worsening s/s.
[2021-10-22] MEDS ORDERED: METHOCARBAMOL 500 MG TABLET PO ONE (17:30)
[2021-10-22] MEDS ORDERED: METHOCARBAMOL 500 MG TABLET ONE (17:31)
== END 2021-10-22 17:33 | disposition home or self-care (01) ==
LOC: ER 16:01
DX: R10.9 Unspecified abdominal pain (principal); Z90.49 Acquired absence of other specified parts of digestive tract; Z86.16 Personal history of COVID-19; G89.29 Other chronic pain; Z87.891 Personal history of nicotine dependence; Z79.899 Other long term (current) drug therapy; F32.A Depression, unspecified; M51.17 Intervertebral disc disorders with radiculopathy, lumbosacral region
CPT/HCPCS: 36415; 74176; 80053; 81003; 83690; 85025; 96372; 99284; J1885; A4663; A9150

== ENCOUNTER 2021-11-14 02:50 | Emergency (ER) | payer MEDICAID ==
[~2021-11-14] VITALS: Ht 167.6 cm; Wt 66.2 kg
[~2021-11-14 02:50] MED LIST changes: -AZIT500T PO; -BUPR150T5 PO; -CEPH-570 PO; -GERD MED; -HYDR-4209 PO; -HYDR-501 PO; -LIDO30AD10 TD; -METH4TAB21 PO; -OXYC-128 PO; -OXYC5CAP18 PO; -PRED20TA PO; -VALA500T PO; -[UNRECOGNIZED DRUG - REMARK]
[2021-11-14] MEDS ORDERED: CIPR5DRO EACHEYE (04:35)
[2021-11-14] MEDS ORDERED: OXYC-128 PO (04:35)
[2021-11-14] MEDS ORDERED: HYDROMORPHONE 1 MG/1 ML DISP.SYRIN IM ONE (04:45)
[2021-11-14] MEDS ORDERED: ONDANSETRON ODT 4 MG TAB.RAPDIS SL ONE (04:45)
[2021-11-14] MEDS ORDERED: ONDANSETRON ODT 4 MG TAB.RAPDIS ONE (04:49)
[2021-11-14] MEDS ORDERED: HYDROMORPHONE 1 MG/1 ML DISP.SYRIN ONE (04:50)
[2021-11-14] MEDS ORDERED: HYDROMORPHONE 2 MG/1 ML DISP.SYRIN ONE (04:50)
--- NOTE | 2021-11-14 04:57 | NUR ---
Kaylan tao in EDM - 11/14/21 at 0502 by MICHELLE A/O x3 ambulatory to ED room 4A reports recurrent low back to left leg sharp pain using OTC, oral and topicals, physical therapy stretching warm, cool applications with poor results discomforts causing restless night. Chapporrosy Larios bedside. Medicated as directed.
--- NOTE | 2021-11-14 05:03 | NUR ---
A/O x3 ambulatory to ED room 4A reports recurrent low back to Right leg sharp pain using OTC, oral and topicals, physical therapy stretching warm, cool applications with poor results discomforts causing restless night. Regi felix. Medicated as directed.
[2021-11-14 05:31] VITALS: BP 136/84
== END 2021-11-14 05:08 | disposition home or self-care (01) ==
LOC: ER 02:52
DX: M54.41 Lumbago with sciatica, right side (principal); H10.9 Unspecified conjunctivitis; Z90.49 Acquired absence of other specified parts of digestive tract; Z86.16 Personal history of COVID-19; F90.9 Attention-deficit hyperactivity disorder, unspecified type; Z79.899 Other long term (current) drug therapy
CPT/HCPCS: 96372 ×2; 99284; J1170 ×2; A4663; Q0162

== ENCOUNTER 2021-11-19 22:36 | Emergency (ER) | payer MEDICAID ==
[~2021-11-19] VITALS: Ht 167.6 cm; Wt 66.2 kg
[~2021-11-19 22:36] MED LIST changes: +CIPR5DRO EACHEYE; +OXYC-128 PO
--- NOTE | 2021-11-19 22:55 | NUR ---
Dr. Larios at bedside for MSE.
[2021-11-19] MEDS ORDERED: ONDANSETRON ODT 4 MG TAB.RAPDIS SL ONE (23:15)
[2021-11-19] MEDS ORDERED: HYDROMORPHONE 1 MG/1 ML DISP.SYRIN IM ONE (23:15)
[2021-11-19] MEDS ORDERED: OXYC-128 PO (23:22)
[2021-11-19] MEDS ORDERED: PRED20TA PO (23:22)
[2021-11-19] MEDS ORDERED: ALBU6.7H9 INH (23:22)
[2021-11-19] MEDS ORDERED: HYDROMORPHONE 2 MG/1 ML DISP.SYRIN ONE (23:27)
[2021-11-19] MEDS ORDERED: HYDROMORPHONE 1 MG/1 ML DISP.SYRIN ONE (23:27)
[2021-11-19] MEDS ORDERED: ONDANSETRON ODT 4 MG TAB.RAPDIS ONE (23:28)
[2021-11-19] MEDS ORDERED: diphenhydrAMINE 25 MG CAP PO ONE ×2 (23:30→23:33)
--- NOTE | 2021-11-19 23:35 | NUR ---
Patient discharged to home in stable condition. Written and verbal after care instructions given. Patient verbalizes understanding of instructions. Stressed follow up or return to ER for worsening s/s. Patient out of ER via with steady gait, no acute signs of distress, VSS, all belongings taken, instructed not to drive, to be driven home by son via private vehicle.
[2021-11-20 00:05] VITALS: BP 148/56
== END 2021-11-20 00:06 | disposition home or self-care (01) ==
LOC: ER 22:38
DX: J06.9 Acute upper respiratory infection, unspecified (principal); M54.41 Lumbago with sciatica, right side; Z90.49 Acquired absence of other specified parts of digestive tract; Z88.8 Allergy status to other drugs, medicaments and biological substances; Z91.048 Other nonmedicinal substance allergy status; Z79.899 Other long term (current) drug therapy; Z79.2 Long term (current) use of antibiotics
CPT/HCPCS: 96372; 99283; J1170 ×2; Q0163; A4663; Q0162

== ENCOUNTER 2021-11-30 20:40 | Emergency (ER) | payer MEDICAID ==
[~2021-11-30] VITALS: Ht 167.6 cm; Wt 65.8 kg
[~2021-11-30 20:40] MED LIST changes: +ALBU6.7H9 INH; +PRED20TA PO
[2021-11-30] MEDS ORDERED: HYDROMORPHONE 1 MG/1 ML DISP.SYRIN IM ONE (22:00)
[2021-11-30] MEDS ORDERED: ONDANSETRON ODT 4 MG TAB.RAPDIS SL ONE (22:00)
[2021-11-30] MEDS ORDERED: ONDANSETRON ODT 4 MG TAB.RAPDIS ONE (22:13)
[2021-11-30] MEDS ORDERED: HYDROMORPHONE 1 MG/1 ML DISP.SYRIN ONE (22:13)
[2021-11-30] MEDS ORDERED: HYDROMORPHONE 2 MG/1 ML DISP.SYRIN ONE (22:13)
[2021-11-30] MEDS ORDERED: diphenhydrAMINE 25 MG CAP PO ONE ×4 (22:15→23:08)
[2021-11-30] MEDS ORDERED: CLON0.1T PO (22:58)
[2021-11-30] MEDS ORDERED: OXYC-128 PO (22:58)
[2021-11-30] MEDS ORDERED: CLONIDINE HCL 0.1 MG TABLET PO ONE (23:00)
--- NOTE | 2021-11-30 23:03 | NUR ---
Patient discharged to home in stable condition. Written and verbal after care instructions given. Patient verbalizes understanding of instructions. Stressed follow up or return to ER for worsening s/s. Patient ambulated with steady gait. Instructed patient that she may not drive, patient stated she has made accomodations for a ups driver to take her home.
[2021-11-30] MEDS ORDERED: CLONIDINE HCL 0.1 MG TABLET ONE (23:08)
[2021-11-30 23:20] VITALS: BP 159/93
--- NOTE | 2021-11-30 23:20 | NUR ---
patient's son is driving her home.
== END 2021-11-30 23:20 | disposition home or self-care (01) ==
LOC: ER 20:45
DX: M54.41 Lumbago with sciatica, right side (principal); I10 Essential (primary) hypertension; Z90.49 Acquired absence of other specified parts of digestive tract; F90.9 Attention-deficit hyperactivity disorder, unspecified type; Z79.899 Other long term (current) drug therapy; Z88.1 Allergy status to other antibiotic agents; Z91.048 Other nonmedicinal substance allergy status
CPT/HCPCS: 96372; 99284; J1170 ×2; Q0163 ×2; A4663; Q0162

== ENCOUNTER 2021-12-20 19:28 | Emergency (ER) | payer MEDICAID ==
[~2021-12-20] VITALS: Ht 167.6 cm; Wt 66.2 kg
[~2021-12-20 19:28] MED LIST changes: +CLON0.1T PO
--- NOTE | 2021-12-20 19:50 | NUR ---
DR. HORTON AT BEDSIDE FOR MSE.
[2021-12-20] MEDS ORDERED: MORPHINE SULFATE 4 MG/1 ML DISP.SYRIN IM ONE (20:00)
[2021-12-20] MEDS ORDERED: LORA10TA7 PO (20:02)
[2021-12-20] MEDS ORDERED: MORPHINE SULFATE 4 MG/1 ML DISP.SYRIN ONE (20:09)
[2021-12-20] MEDS ORDERED: ONDANSETRON ODT 4 MG TAB.RAPDIS SL ONE (20:15)
--- NOTE | 2021-12-20 20:19 | NUR ---
Patient discharged to home in stable condition. Written and verbal after care instructions given. Patient verbalizes understanding of instructions. Stressed follow up or return to ER for worsening s/s. Pt ambulated with steady gait. Denies pain.
[2021-12-20 20:21] VITALS: BP 121/71
[2021-12-20] MEDS ORDERED: ONDANSETRON ODT 4 MG TAB.RAPDIS ONE (20:21)
== END 2021-12-20 20:21 | disposition home or self-care (01) ==
LOC: ER 19:30
DX: G89.29 Other chronic pain (principal); M54.9 Dorsalgia, unspecified; Z76.0 Encounter for issue of repeat prescription; Z88.1 Allergy status to other antibiotic agents; Z91.048 Other nonmedicinal substance allergy status; Z90.49 Acquired absence of other specified parts of digestive tract
CPT/HCPCS: 96372; 99283; J2270; A4663; Q0162

== ENCOUNTER 2022-01-08 19:28 | Emergency (ER) | payer MEDICAID ==
[~2022-01-08] VITALS: Ht 167.6 cm; Wt 68.0 kg
[~2022-01-08 19:28] MED LIST changes: +LORA10TA7 PO
[2022-01-08] MEDS ORDERED: NITROGLYCERIN 0.4 MG/TAB BOTTLE SL ONE ×2 (20:15→20:40)
[2022-01-08] MEDS ORDERED: KETOROLAC TROMETHAMINE 15 MG INJ IVP ONE (20:15)
[2022-01-08] MEDS ORDERED: ONDANSETRON 4 MG/2 ML VIAL IV ONE (20:15)
[2022-01-08] MEDS ORDERED: NITROGLYCERIN OINT 1 GM PACKET TP ONE ×2 (20:15→20:44)
[2022-01-08] MEDS ORDERED: HYDROCODONE/APAP 5-325MG TABLET PO ONE (20:15)
[2022-01-08] MEDS ORDERED: ACETAMINOPHEN ES 500 MG TABLET PO ONE (20:15)
[2022-01-08] MEDS ORDERED: ASPIRIN 81 MG TAB.CHEW PO ONE (20:15)
[2022-01-08 20:35] LABS: HEMATOCRIT 36.7 % (31.2-41.9); MEAN CORPUSCULAR HEMOGLOBIN 33.4 uug (24.7-32.8); PLATELET COUNT (AUTO) 275 K/uL (179-408)
[2022-01-08] MEDS ORDERED: ACETAMINOPHEN ES 500 MG TABLET ONE (20:37)
[2022-01-08] MEDS ORDERED: ONDANSETRON 4 MG/2 ML VIAL ONE (20:38)
[2022-01-08] MEDS ORDERED: NITROGLYCERIN 0.4MG/HR (=16 CM2) PATCH TD ONE (20:39)
[2022-01-08] MEDS ORDERED: KETOROLAC TROMETHAMINE 30 MG INJ ONE (20:39)
[2022-01-08 20:40] LABS: CREATININE 0.9 mg/dL (0.6-1.3); POTASSIUM 3.9 mmol/L (3.5-5.1)
[2022-01-08] MEDS ORDERED: HYDROCODONE/APAP 5-325MG TABLET ONE (20:43)
[2022-01-08 20:52] LABS: BILIRUBIN,DIRECT 0.1 mg/dL (0.0-0.2); BILIRUBIN,TOTAL 0.2 mg/dL (0.2-1.0); TOTAL PROTEIN, SERUM 6.8 g/dL (6.4-8.2)
[2022-01-08] MEDS ORDERED: OXYC-128 PO (21:09)
[2022-01-08 21:24] VITALS: BP 147/83
== END 2022-01-08 21:26 | disposition home or self-care (01) ==
LOC: ER 19:37
DX: G89.29 Other chronic pain (principal); M54.41 Lumbago with sciatica, right side; R05.9 Cough, unspecified; R11.0 Nausea; F41.9 Anxiety disorder, unspecified; R06.00 Dyspnea, unspecified; Z86.16 Personal history of COVID-19; R10.9 Unspecified abdominal pain
CPT/HCPCS: 71045; 80048; 80076; 83690; 83880; 85025; 85379; 85730; 93005; 96374; 96375; 99285; J1885; J2405; A4663; A9150

== ENCOUNTER 2022-02-23 14:39 | Emergency (ER) | payer MEDICAID ==
[~2022-02-23] VITALS: Ht 167.6 cm; Wt 68.0 kg
[2022-02-23] MEDS ORDERED: KETOROLAC TROMETHAMINE 30 MG INJ ONE (15:11)
[2022-02-23] MEDS ORDERED: LORAZEPAM 1 MG TABLET ONE (15:11)
[2022-02-23] MEDS ORDERED: LORAZEPAM 0.5 MG TABLET PO ONE (15:15)
[2022-02-23] MEDS ORDERED: KETOROLAC TROMETHAMINE 30 MG INJ IM ONE (15:15)
[2022-02-23] MEDS ORDERED: CYCL5TAB PO (15:35)
[2022-02-23] MEDS ORDERED: ONDANSETRON ODT 4 MG TAB.RAPDIS ONE (15:41)
[2022-02-23] MEDS ORDERED: MORPHINE SULFATE 4 MG/1 ML DISP.SYRIN ONE (15:42)
[2022-02-23] MEDS ORDERED: MORPHINE SULFATE 2 MG/1 ML DISP.SYRIN ONE (15:42)
[2022-02-23] MEDS ORDERED: MORPHINE SULFATE 4 MG/1 ML DISP.SYRIN IM ONE (15:45)
[2022-02-23] MEDS ORDERED: ONDANSETRON ODT 4 MG TAB.RAPDIS SL ONE (15:45)
--- NOTE | 2022-02-23 15:48 | NUR ---
Patient was seen by MD. Meds given as ordered. Stated Toradol that was given nannette "did not help at all" and asked for "something much stronger". MD notified. MS given as ordered. Patient states she has a ride home and will not drive today. DC, Rx (and where to [facility]) and follow up instructions given and explained to patient who states she understands all instructions
== END 2022-02-23 15:50 | disposition home or self-care (01) ==
LOC: ER 14:39
DX: G89.29 Other chronic pain (principal); M54.9 Dorsalgia, unspecified; Z86.16 Personal history of COVID-19; Z90.49 Acquired absence of other specified parts of digestive tract; M47.9 Spondylosis, unspecified
CPT/HCPCS: 96372 ×2; 99284; J1885; J2270 ×2; A4663; Q0162

== ENCOUNTER 2022-04-13 13:05 | Emergency (ER) | payer MEDICAID ==
[~2022-04-13] VITALS: Ht 167.6 cm; Wt 66.2 kg
[~2022-04-13 13:05] MED LIST changes: +CYCL5TAB PO
[2022-04-13] MEDS ORDERED: DULO60CA45 PO (13:24)
[2022-04-13] MEDS ORDERED: CYCLOBENZAPRINE HCL 10 MG TABLET PO ONE (13:30)
[2022-04-13] MEDS ORDERED: KETOROLAC TROMETHAMINE 15 MG INJ IM ONE (13:30)
[2022-04-13] MEDS ORDERED: ACETAMINOPHEN 650 MG/20.3 ML LIQUID UDC PO ONE (13:30)
[2022-04-13] MEDS ORDERED: KETOROLAC TROMETHAMINE 15 MG INJ ONE (13:36)
[2022-04-13] MEDS ORDERED: ONDANSETRON ODT 4 MG TAB.RAPDIS ONE (13:36)
[2022-04-13] MEDS ORDERED: ACETAMINOPHEN ES 500 MG TABLET ONE (13:36)
[2022-04-13] MEDS ORDERED: CYCLOBENZAPRINE HCL 10 MG TABLET ONE (13:36)
[2022-04-13] MEDS ORDERED: ONDANSETRON ODT 4 MG TAB.RAPDIS SL ONE (13:45)
--- NOTE | 2022-04-13 13:52 | NUR ---
Patient eloped from facility. ER physician notified.
== END 2022-04-13 13:51 | disposition left against medical advice (07) ==
LOC: ER 13:05
DX: M54.50 Low back pain, unspecified (principal); G89.29 Other chronic pain; Z90.49 Acquired absence of other specified parts of digestive tract; F90.9 Attention-deficit hyperactivity disorder, unspecified type; Z79.899 Other long term (current) drug therapy
CPT/HCPCS: 96372; 99283; J1885; A4663; A9150; Q0162

== ENCOUNTER 2022-06-13 21:55 | Emergency (ER) | payer MEDICAID ==
[~2022-06-13] VITALS: Ht 165.1 cm; Wt 59.0 kg
[~2022-06-13 21:55] MED LIST changes: +DULO60CA45 PO; -ESCI20TA PO
[2022-06-13] MEDS ORDERED: LORA2TAB95 PO (23:00)
[2022-06-13] MEDS ORDERED: LORAZEPAM 1 MG TABLET ONE (23:00)
[2022-06-13] MEDS ORDERED: HYDR453. TP (23:00)
[2022-06-13] MEDS ORDERED: OXYC-128 PO (23:00)
[2022-06-13] MEDS ORDERED: OXYCODONE/APAP 5-325 MG TABLET ONE (23:00)
[2022-06-13] MEDS ORDERED: SILV50CR32 TP (23:00)
[2022-06-13] MEDS ORDERED: OXYCODONE/APAP 5-325 MG TABLET PO ONE (23:00)
[2022-06-13] MEDS ORDERED: LORAZEPAM 0.5 MG TABLET PO ONE (23:00)
[2022-06-13] MEDS ORDERED: FLUCONAZOLE 100 MG TABLET ONE (23:06)
[2022-06-13] MEDS ORDERED: FLUCONAZOLE 100 MG TABLET PO ONE (23:15)
--- NOTE | 2022-06-13 23:16 | NUR ---
Patient discharged to home in stable condition . Written and verbal after care instructions given. Patient verbalizes understanding of instructions. Stressed follow up or return to ER for worsening s/s. Patient states she will take [employer] home.
[2022-06-13 23:17] VITALS: BP 158/98
== END 2022-06-13 23:17 | disposition home or self-care (01) ==
LOC: ER 21:57
DX: L85.3 Xerosis cutis (principal); G89.4 Chronic pain syndrome; M54.50 Low back pain, unspecified; Z90.49 Acquired absence of other specified parts of digestive tract; R03.0 Elevated blood-pressure reading, without diagnosis of hypertension; F41.1 Generalized anxiety disorder
CPT/HCPCS: A4663

== ENCOUNTER 2022-09-16 11:34 | Emergency (ER) | payer MEDICAID ==
[~2022-09-16] VITALS: Ht 167.6 cm; Wt 64.4 kg
[~2022-09-16 11:34] MED LIST changes: +HYDR453. TP; +LORA2TAB95 PO; +SILV50CR32 TP
--- NOTE | 2022-09-16 11:45 | NUR ---
Pt was triaged and placed in the waiting room, no ER beds available at this time.
--- NOTE | 2022-09-16 12:00 | NUR ---
Pt ambulatory to room 5A from waiting room, no s/s of acute distress noted. Pt has already been seen by .
[2022-09-16] MEDS ORDERED: BENZONATATE 100 MG CAPSULE PO ONE (12:15)
[2022-09-16] MEDS ORDERED: ALBUTEROL SULFATE 2.5 MG/3 ML NEBU NEB ONE (12:15)
[2022-09-16] MEDS ORDERED: ALBUTEROL SULFATE 2.5 MG/3 ML NEBU ONE (12:17)
[2022-09-16] MEDS ORDERED: BENZ-13 PO (12:57)
[2022-09-16] MEDS ORDERED: ALBU18HF2 INH (12:57)
--- NOTE | 2022-09-16 13:08 | NUR ---
Gave pt RX and d/c instructions, pt verbalized understanding.
== END 2022-09-16 13:11 | disposition home or self-care (01) ==
LOC: ER 11:34
DX: J06.9 Acute upper respiratory infection, unspecified (principal); B97.89 Other viral agents as the cause of diseases classified elsewhere; Z20.822 Contact with and (suspected) exposure to COVID-19; Z90.49 Acquired absence of other specified parts of digestive tract; Z28.310 Unvaccinated for COVID-19; Z86.16 Personal history of COVID-19; Z88.1 Allergy status to other antibiotic agents; Z91.048 Other nonmedicinal substance allergy status
CPT/HCPCS: 99283; 87400; 36415; 94640; U0003; C9803; A4663

== ENCOUNTER 2022-09-20 12:46 | Emergency (ER) | payer MEDICAID ==
[~2022-09-20] VITALS: Ht 167.6 cm; Wt 65.8 kg
[~2022-09-20 12:46] MED LIST changes: +ALBU18HF2 INH; +BENZ-13 PO
[2022-09-20] MEDS ORDERED: predniSONE 10 MG TABLET PO ONE (14:30)
[2022-09-20] MEDS ORDERED: IPRATROPIUM BROMIDE 0.5 MG/2.5 ML NEBU NEB ONE (14:30)
[2022-09-20] MEDS ORDERED: ALBUTEROL SULFATE 2.5 MG/3 ML NEBU NEB ONE (14:30)
[2022-09-20] MEDS ORDERED: IBUPROFEN 600 MG TABLET PO ONE (14:30)
[2022-09-20] MEDS ORDERED: IPRATROPIUM BROMIDE 0.5 MG/2.5 ML NEBU ONE (14:37)
[2022-09-20] MEDS ORDERED: ALBUTEROL SULFATE 2.5 MG/3 ML NEBU ONE (14:37)
[2022-09-20] MEDS ORDERED: predniSONE 20 MG TABLET ONE (14:39)
[2022-09-20] MEDS ORDERED: IBUPROFEN 600 MG TABLET ONE (14:39)
[2022-09-20] MEDS ORDERED: ALBU6.7H9 INH (15:16)
[2022-09-20] MEDS ORDERED: HYDR453.3 TP (15:16)
[2022-09-20] MEDS ORDERED: PRED50TA PO (15:16)
[2022-09-20] MEDS ORDERED: [UNRECOGNIZED DRUG - CODE] PO (15:16)
[2022-09-20 15:36] VITALS: BP 138/82
== END 2022-09-20 15:25 | disposition home or self-care (01) ==
LOC: ER 12:46
DX: J06.9 Acute upper respiratory infection, unspecified (principal); B97.89 Other viral agents as the cause of diseases classified elsewhere; J45.909 Unspecified asthma, uncomplicated; Z90.49 Acquired absence of other specified parts of digestive tract; Z86.16 Personal history of COVID-19; Z88.1 Allergy status to other antibiotic agents; Z87.01 Personal history of pneumonia (recurrent)
CPT/HCPCS: 99283; 71045; 94640; J7512; J3590

== ENCOUNTER 2022-09-30 13:20 | Emergency (ER) | payer MEDICAID ==
[~2022-09-30] VITALS: Ht 167.6 cm; Wt 64.4 kg
[~2022-09-30 13:20] MED LIST changes: +PRED50TA PO; +[UNRECOGNIZED DRUG - CODE] PO
[2022-09-30] MEDS ORDERED: LORAZEPAM 0.5 MG TABLET PO ONE (14:00)
[2022-09-30] MEDS ORDERED: ALBUTEROL SULFATE 2.5 MG/3 ML NEBU NEB ONE (14:00)
[2022-09-30] MEDS ORDERED: IPRATROPIUM BROMIDE 0.5 MG/2.5 ML NEBU NEB ONE (14:00)
[2022-09-30] MEDS ORDERED: IV NORMAL SALINE 1000 ML BAG IV ONE (14:00)
[2022-09-30] MEDS ORDERED: methylPREDNISolone SOD SUCC 125 MG/2 ML VIAL IV ONE (14:00)
[2022-09-30 14:22] LABS: HEMATOCRIT 37.5 % (31.2-41.9); MEAN CORPUSCULAR HEMOGLOBIN 31.7 uug (24.7-32.8); PLATELET COUNT (AUTO) 322 K/uL (179-408)
[2022-09-30] MEDS ORDERED: LORAZEPAM 1 MG TABLET ONE (14:24)
[2022-09-30] MEDS ORDERED: methylPREDNISolone SOD SUCC 125 MG/2 ML VIAL ONE (14:24)
[2022-09-30 14:34] LABS: CREATININE 0.9 mg/dL (0.6-1.3); POTASSIUM 3.9 mmol/L (3.5-5.1)
[2022-09-30] MEDS ORDERED: CODE10LI PO (15:01)
[2022-09-30] MEDS ORDERED: LORA-259 PO (15:01)
[2022-09-30] MEDS ORDERED: AZIT250T PO (15:01)
[2022-09-30] MEDS ORDERED: ALBUTEROL SULFATE 2.5 MG/3 ML NEBU ONE (15:36)
[2022-09-30] MEDS ORDERED: IPRATROPIUM BROMIDE 0.5 MG/2.5 ML NEBU ONE (15:36)
[2022-09-30] MEDS ORDERED: ALBU18HF2 INH (15:43)
== END 2022-09-30 17:30 | disposition home or self-care (01) ==
LOC: ER 13:20
DX: J20.9 Acute bronchitis, unspecified (principal); F41.9 Anxiety disorder, unspecified; Z86.16 Personal history of COVID-19; Z28.310 Unvaccinated for COVID-19; Z28.9 Immunization not carried out for unspecified reason; Z87.19 Personal history of other diseases of the digestive system; D72.829 Elevated white blood cell count, unspecified; Z90.49 Acquired absence of other specified parts of digestive tract; R91.1 Solitary pulmonary nodule
CPT/HCPCS: 99284; 96374; 96361; 71045; 80048; 85025; 36415; 94640; J2930; J7040; A4663; J3590

== ENCOUNTER 2022-11-05 19:09 | Emergency (ER) | payer MEDICAID ==
[~2022-11-05] VITALS: Ht 167.6 cm; Wt 65.8 kg
[~2022-11-05 19:09] MED LIST changes: +AZIT250T PO; +CODE10LI PO; +LORA-259 PO
[2022-11-05] MEDS ORDERED: HYDR-3976 PO (19:39)
[2022-11-05] MEDS ORDERED: AMOX-430 PO (19:39)
--- NOTE | 2022-11-05 19:40 | NUR ---
Dr. Larios at bedside for MSE.
[2022-11-05] MEDS ORDERED: ALBUTEROL SULFATE 2.5 MG/3 ML NEBU NEB ONE (20:15)
[2022-11-05] MEDS ORDERED: IPRATROPIUM BROMIDE 0.5 MG/2.5 ML NEBU NEB ONE (20:15)
[2022-11-05] MEDS ORDERED: OXYCODONE/APAP 5-325 MG TABLET PO ONE (20:30)
[2022-11-05] MEDS ORDERED: IPRATROPIUM BROMIDE 0.5 MG/2.5 ML NEBU ONE (20:31)
[2022-11-05] MEDS ORDERED: ALBUTEROL SULFATE 2.5 MG/3 ML NEBU ONE (20:31)
[2022-11-05] MEDS ORDERED: OXYCODONE/APAP 5-325 MG TABLET ONE (20:32)
[2022-11-05] MEDS ORDERED: predniSONE 20 MG TABLET ONE (20:37)
[2022-11-05] MEDS ORDERED: predniSONE 20 MG TABLET PO ONE (20:45)
[2022-11-05] MEDS ORDERED: PRED20TA PO (20:54)
[2022-11-05] MEDS ORDERED: HYDR-3980 PO (20:54)
[2022-11-05] MEDS ORDERED: ALBU6.7H9 INH (20:54)
[2022-11-05] MEDS ORDERED: SILV50CR32 TP (21:11)
--- NOTE | 2022-11-05 21:11 | NUR ---
Patient discharged to home in stable condition. Written and verbal after care instructions given. Patient verbalizes understanding of instructions. Stressed follow up or return to ER for worsening s/s. Patient out of ER with steady gait, no acute signs of distress, VSS, all belongings taken, instructed to not to drive, will uber home.
[2022-11-05 21:13] VITALS: BP 137/99
== END 2022-11-05 21:13 | disposition home or self-care (01) ==
LOC: ER 19:09
DX: J45.909 Unspecified asthma, uncomplicated (principal); M54.41 Lumbago with sciatica, right side; Z90.49 Acquired absence of other specified parts of digestive tract; F90.9 Attention-deficit hyperactivity disorder, unspecified type; G89.29 Other chronic pain; Z86.16 Personal history of COVID-19
CPT/HCPCS: 99283; 94640; J7512; A4663; J3590

== ENCOUNTER 2023-02-22 20:12 | Emergency (ER) | payer MEDICAID ==
[~2023-02-22] VITALS: Ht 167.6 cm; Wt 65.8 kg
[~2023-02-22 20:12] MED LIST changes: +HYDR-3980 PO
--- NOTE | 2023-02-22 20:25 | NUR ---
After being triaged, patient was placed back in the waiting room due to no beds available in the ER at this time.
--- NOTE | 2023-02-22 21:32 | NUR ---
Placed in room 5B at this time.
--- NOTE | 2023-02-22 21:44 | NUR ---
Dr. Larios in room examining patient. MSE in progress.
[2023-02-22] MEDS ORDERED: ONDA4TAB5 PO (22:15)
[2023-02-22] MEDS ORDERED: SILV50CR32 TP (22:15)
[2023-02-22] MEDS ORDERED: HYDR-3980 PO (22:15)
[2023-02-22] MEDS ORDERED: ONDANSETRON ODT 4 MG TAB.RAPDIS ONE (22:15)
[2023-02-22] MEDS ORDERED: ONDANSETRON ODT 4 MG TAB.RAPDIS SL ONE (22:15)
[2023-02-22] MEDS ORDERED: SUCR1TAB PO (22:15)
[2023-02-22] MEDS ORDERED: HYDROMORPHONE 1 MG/1 ML DISP.SYRIN IM ONE (22:15)
[2023-02-22] MEDS ORDERED: HYDROMORPHONE 2 MG/1 ML DISP.SYRIN ONE (22:15)
[2023-02-22 22:43] VITALS: BP 135/77
== END 2023-02-22 22:43 | disposition home or self-care (01) ==
LOC: ER 20:15
DX: M54.41 Lumbago with sciatica, right side (principal); J45.909 Unspecified asthma, uncomplicated; Z90.49 Acquired absence of other specified parts of digestive tract; Z88.8 Allergy status to other drugs, medicaments and biological substances; Z91.048 Other nonmedicinal substance allergy status; Z79.899 Other long term (current) drug therapy; Z79.2 Long term (current) use of antibiotics
CPT/HCPCS: 99283; 96372; J1170; A4663; Q0162

== ENCOUNTER 2023-08-16 21:27 | Emergency (ER) | payer MEDICAID ==
[~2023-08-16] VITALS: Ht 167.6 cm; Wt 64.4 kg
[~2023-08-16 21:27] MED LIST changes: +SUCR1TAB PO
[2023-08-17] MEDS ORDERED: ONDA4TAB5 PO (00:28)
[2023-08-17] MEDS ORDERED: HYDR-3980 PO (00:28)
[2023-08-17] MEDS ORDERED: diphenhydrAMINE 50 MG CAPSULE PO ONE (00:30)
[2023-08-17] MEDS ORDERED: ONDANSETRON HCL 4 MG TABLET PO ONE (00:30)
[2023-08-17] MEDS ORDERED: HYDROMORPHONE 2 MG/1 ML DISP.SYRIN ONE (00:30)
[2023-08-17] MEDS ORDERED: ONDANSETRON HCL 4 MG TABLET ONE (00:30)
[2023-08-17] MEDS ORDERED: diphenhydrAMINE 50 MG CAPSULE ONE (00:30)
[2023-08-17] MEDS ORDERED: HYDROMORPHONE 1 MG/1 ML DISP.SYRIN IM ONE (00:30)
[2023-08-17 00:59] VITALS: BP 135/66; O2SAT 98
== END 2023-08-17 01:00 | disposition home or self-care (01) ==
LOC: ER 21:30
DX: M54.41 Lumbago with sciatica, right side (principal); R11.0 Nausea; Z90.49 Acquired absence of other specified parts of digestive tract; Z88.8 Allergy status to other drugs, medicaments and biological substances; Z91.048 Other nonmedicinal substance allergy status; Z79.899 Other long term (current) drug therapy; Z79.2 Long term (current) use of antibiotics
CPT/HCPCS: 99283; 96372; Q0163; J1170; A4606; A4663; Q0162

== ENCOUNTER 2023-10-31 23:19 | Emergency (ER) | payer MEDICAID ==
[~2023-10-31] VITALS: Ht 167.6 cm; Wt 66.2 kg
[2023-11-01] MEDS ORDERED: HYDROMORPHONE 1 MG/1 ML DISP.SYRIN IM ONE (00:15)
[2023-11-01] MEDS ORDERED: ONDANSETRON ODT 4 MG TAB.RAPDIS SL ONE (00:15)
[2023-11-01] MEDS ORDERED: diphenhydrAMINE 50 MG/1 ML VIAL IM ONE (00:15)
[2023-11-01] MEDS ORDERED: OXYC-133 PO (00:23)
[2023-11-01] MEDS ORDERED: CARI350T PO (00:23)
[2023-11-01] MEDS ORDERED: CARISOPRODOL 350 MG TABLET ONE (00:26)
[2023-11-01] MEDS ORDERED: diphenhydrAMINE 50 MG/1 ML VIAL ONE (00:26)
[2023-11-01] MEDS ORDERED: ONDANSETRON 4 MG/2 ML VIAL ONE (00:26)
[2023-11-01] MEDS ORDERED: HYDROMORPHONE 2 MG/1 ML DISP.SYRIN ONE (00:27)
[2023-11-01] MEDS ORDERED: CARISOPRODOL 350 MG TABLET PO ONE (00:30)
[2023-11-01 00:45] VITALS: BP 121/74; TEMP 98.2; O2SAT 98
== END 2023-11-01 00:46 | disposition home or self-care (01) ==
LOC: ER 23:22
DX: G89.29 Other chronic pain (principal); M54.50 Low back pain, unspecified; Z79.899 Other long term (current) drug therapy; Z60.2 Problems related to living alone; Z88.1 Allergy status to other antibiotic agents
CPT/HCPCS: 99284; 96372 ×2; J1200; J2405; J1170; A4606; A4663

== ENCOUNTER 2024-03-29 21:57 | Emergency (ER) | payer MEDICAID ==
[~2024-03-29] VITALS: Ht 170.2 cm; Wt 66.2 kg
[~2024-03-29 21:57] MED LIST changes: +CARI350T PO; +OXYC-133 PO
[2024-03-29] MEDS ORDERED: ONDANSETRON ODT 4 MG TAB.RAPDIS ONE (23:46)
[2024-03-29] MEDS ORDERED: MORPHINE SULFATE 4 MG/1 ML DISP.SYRIN ONE (23:46)
[2024-03-29] MEDS ORDERED: CLIN-118 PO (23:46)
[2024-03-29] MEDS ORDERED: AZEL50GE5 TP (23:46)
[2024-03-29] MEDS: ONDANSETRON ODT 4 MG TAB.RAPDIS SL ONE (23:50)
[2024-03-29] MEDS: MORPHINE SULFATE 4 MG/1 ML DISP.SYRIN IM ONE (23:51)
[2024-03-30 00:03] VITALS: BP 97/44; O2SAT 97
== END 2024-03-30 00:04 | disposition home or self-care (01) ==
LOC: ER 22:11
DX: L71.9 Rosacea, unspecified (principal); M19.90 Unspecified osteoarthritis, unspecified site; Z79.899 Other long term (current) drug therapy; Z60.2 Problems related to living alone; Z88.1 Allergy status to other antibiotic agents
CPT/HCPCS: 99283; 96372; J2270; A4606; A4663; Q0162